=== PATIENT | male | born 1930 | race Caucasian/White ===

== ENCOUNTER 2016-12-14 12:33 | Inpatient (IN) | payer MEDICARE ==
[2016-12-14] MEDS ORDERED: NS 0.9% 1000 ML* 2,000 ML IV ONE (12:51)
[2016-12-14] MEDS ORDERED: Vancomycin(*) 1,000 MG in NS 0.9% 250 ML* 250 ML IVPB ONE (12:53)
[2016-12-14] MEDS ORDERED: ceFAZolin 1 GM in Dextrose (*) 1 GM/50 ML BAG IVPB ONE (12:53)
[2016-12-14 13:28] LABS: Hematocrit 44 % (42-52); Hemoglobin 14.2 g/dl (14.0-18.0); Mean Corpuscular HGB Conc 33 g/dl (31-36); Mean Corpuscular Hemoglobin 32 pg (27-31); Mean Corpuscular Volume 98 fL (80-94); Mean Platelet Volume 9 um3 (7.4-10.4); Red Blood Count 4.46 10^6/ul (4.0-5.4); Red Cell Distribution Width 13 % (10.5-15); White Blood Count 15.6 10^3/ul (3.5-10.8)
[2016-12-14 13:44] LABS: Albumin 3.9 g/dL (3.2-5.2); BUN/Creatinine Ratio 13.9 (8-20); C Reactive Protein 5.71 mg/L (< 5.00); Calcium 9.4 mg/dL (8.6-10.3); EGFR African American 90.1 (>60); Globulin 3.6 g/dL (2-4); Potassium 3.9 mmol/L (3.5-5.0); Total Bilirubin 0.9 mg/dL (0.2-1.0); Total Protein 7.5 g/dL (6.4-8.9)
[2016-12-14 13:45] LABS: Troponin I 0.01 ng/mL (<0.04)
[2016-12-14 13:52] LABS: Urine Bilirubin Negative (Negative); Urine Glucose Negative (Negative); Urine Nitrite Negative (Negative)
--- NOTE | 2016-12-14 14:08 | RAD ---
INDICATION: Fever. COMPARISON: Comparison is made with a prior chest x-ray study from March 15, 2016. TECHNIQUE: A portable view of the chest was obtained. FINDINGS: There is a dual-chamber transvenous cardiac pacemaker present. The heart appears within normal limits in size. The lungs are underinflated. There is a small infiltrate at the left lung base. IMPRESSION: EXPIRATORY EXAM, SMALL LEFT BASILAR INFILTRATE.
[2016-12-14 14:18] LABS: TSH (Thyroid Stimulating Horm) 1.19 mcIU/mL (0.34-5.60)
[2016-12-14] MEDS ORDERED: GuaiFENesin DM* 5 ML UDC PO PRN (15:13)
[2016-12-14] MEDS ORDERED: MELATONIN 5 MG PO PRN (15:13)
[2016-12-14] MEDS ORDERED: NS 0.9% 1000 ML* 1,000 ML IV SCH (15:15)
[2016-12-14] MEDS ORDERED: Albuterol 2.5 MG/3 ML NEB.SOL* (0.083%) INH PRN (15:26)
[2016-12-14] MEDS ORDERED: Acetaminophen TAB* 325 MG PO PRN (15:26)
--- NOTE | 2016-12-14 15:26 | ED ---
Julio Nolan Billy, scribed for Porter Serrano MD on 12/14/16 at 1253 . Complex/Multi-Sys Presentation - HPI Summary HPI Summary: Patient is an 86 year-old male BIBA to [facility] from the [place] with complaints of fever and weakness today. Nothing makes his symptoms better or worse. He denies any chest pain, shortness of breath, or abdominal pain. He has a dressing on his LLE for cellulitis and he is being treated with doxycycline. - History Of Current Complaint Chief Complaint: EDFever Time Seen by Provider: 12/14/16 12:41 Hx Obtained From: Patient, Family/Gum Worker Onset/Duration: Gradual Onset, Lasting Hours, Still Present Timing: Constant Severity Currently: Moderate Severity Initially: Moderate Aggravating Factor(s): none Alleviating Factor(s): none Associated Signs And Symptoms: Positive: Weakness, Fever, Other - LLE cellulitis - Allergies/Home Medications Allergies/Adverse Reactions: Allergies Allergy/AdvReac Type Severity Reaction Status Date / Time No Known Allergies Allergy Verified 03/15/16 19:57 Home Medications: Home Medications Atorvastatin* [Lipitor 20 MG*] 20 mg PO BEDTIME 12/14/16 [History Confirmed ] Cyanocobalamin TAB* [Vitamin B12 TAB*] 1,000 mcg PO DAILY 12/14/16 [History Confirmed 12/14/16] Doxycycline Hyclate [Doxycycline Hyclate Dr] 100 mg PO BID 12/14/16 [History Confirmed 12/14/16] Furosemide TAB* [Lasix TAB*] 20 mg PO EVERY OTHER DAY 12/14/16 [History Confirmed 12/14/16] GuaiFENesin DM* [Robitussin DM*] 5 ml PO Q4H PRN 12/14/16 [History Confirmed ] Hydrochlorothiazide TAB* [Hydrodiuril TAB*] 12.5 mg PO QAM 12/14/16 [History Confirmed 12/14/16] LoraTADine TAB(NF) [Claritin 10 MG TAB(NF)] 10 mg PO DAILY 12/14/16 [History Confirmed 12/14/16] Melatonin 5 mg PO BEDTIME PRN 12/14/16 [History Confirmed 12/14/16] Menthol (Mouth-Throat) [[place] Cough Drops] 7 mg PO Q4HR PRN 12/14/16 [History Confirmed 12/14/16] PMH/Surg Hx/FS Hx/Imm Hx Endocrine/Hematology History: Denies: Hx Diabetes Cardiovascular History: Reports: Hx Auto Implanted Cardiovert Defib, Hx Hypertension, Hx Pacemaker/ICD - FOR BRADYARRHYTHMIA Denies: Hx Congestive Heart Failure History: Denies: Hx Renal Disease Sensory History: Reports: Hx Contacts or Glasses, Hx Hearing Problem Opthamlomology History: Reports: Hx Contacts or Glasses - Cancer History Cancer Type, Location 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 - Surgical History Surgery Procedure, Year, and Place: Hernia repair x 2 Infectious Disease History: No Infectious Disease History: Denies: History Other Infectious Disease, Traveled Outside the [place] in Last 30 Days - Family History Known Family History: Positive: Unknown - Patient is a poor historian concerning his family history. - Social History Alcohol Use: None Substance Use Type: Reports: None Smoking Status (MU): Never Smoked Tobacco Review of Systems Positive: Fever Negative: Chest Pain Negative: Shortness Of Breath Negative: Abdominal Pain Positive: Other - erythema LLE Positive: Weakness All Other Systems Reviewed And Are Negative: Yes Physical Exam Triage Information Reviewed: Yes Vital Signs On Initial Exam: Initial Vitals Temp Pulse Resp BP Pulse Ox 101.9 F 72 33 113/61 100 12/14/16 12:43 12/14/16 12:43 12/14/16 12:43 12/14/16 12:43 12/14/16 12:43 Vital Signs Reviewed: Yes Appearance: Positive: Well-Appearing, No Pain Distress Skin: Positive: Warm, Skin Color Reflects Adequate Perfusion, Dry, Erythema @ - There is an area of erythema on the left lower extremity. There is clean dressing applied, with drainage at the edges. Head/Face: Positive: Normal Head/Face Inspection Eyes: Positive: EOMI, MEGAN ENT: Positive: Normal ENT inspection, Other - Hard of hearing Neck: Positive: Supple, Nontender Respiratory/Lung Sounds: Positive: Clear to Auscultation, Breath Sounds Present Cardiovascular: Positive: RRR Abdomen Description: Positive: Nontender, Soft Bowel Sounds: Positive: Present Musculoskeletal: Positive: Normal, Strength/ROM Intact Neurological: Positive: Sensory/Motor Intact Psychiatric: Positive: Affect/Mood Appropriate Diagnostics - Vital Signs Vital Signs Temp Pulse Resp BP Pulse Ox 12/14/16 12:43 101.9 F 72 33 113/61 100 - Laboratory Lab Results: Lab Results 12/14/16 12/14/16 12/14/16 Range/Units 13:15 13:15 13:15 WBC 15.6 H (3.5-10.8) 10^3/ul RBC 4.46 (4.0-5.4) 10^6/ul Hgb 14.2 (14.0-18.0) g/dl Hct 44 (42-52) % MCV 98 H (80-94) fL MCH 32 H (27-31) pg MCHC 33 (31-36) g/dl RDW 13 (10.5-15) % Plt Count 163 (150-450) 10^3/ul MPV 9 (7.4-10.4) um3 Neut % (Auto) 88.9 H (38-83) % Lymph % (Auto) 4.8 L (25-47) % [place] % (Auto) 5.7 (1-9) % Eos % (Auto) 0.2 (0-6) % Baso % (Auto) 0.4 (0-2) % Absolute Neuts (auto) 13.9 H (1.5-7.7) 10^3/ul Absolute Lymphs (auto) 0.7 L (1.0-4.8) 10^3/ul Absolute Monos (auto) 0.9 H (0-0.8) 10^3/ul Absolute Eos (auto) 0 (0-0.6) 10^3/ul Absolute Basos (auto) 0.1 (0-0.2) 10^3/ul Absolute Nucleated RBC 0 10^3/ul Nucleated RBC % 0 INR (Anticoag Therapy) 2.31 H (0.89-1.11) APTT 40.6 H (26.0-36.3) seconds Sodium 135 (133-145) mmol/L Potassium 3.9 (3.5-5.0) mmol/L Chloride 100 L (101-111) mmol/L Carbon Dioxide 29 (22-32) mmol/L Anion Gap 6 (2-11) mmol/L BUN 14 (6-24) mg/dL Creatinine 1.01 (0.67-1.17) mg/dL Est GFR ( Amer) 90.1 (>60) Est GFR (Non-Af Amer) 70.0 (>60) BUN/Creatinine Ratio 13.9 (8-20) Glucose 162 H (70-100) mg/dL Lactic Acid (0.5-2.0) mmol/L Calcium 9.4 (8.6-10.3) mg/dL Total Bilirubin 0.90 (0.2-1.0) mg/dL AST 22 (13-39) U/L ALT 18 (7-52) U/L Alkaline Phosphatase 90 (34-104) U/L Troponin I 0.01 (<0.04) ng/mL C-Reactive Protein 5.71 H (< 5.00) mg/L B-Natriuretic Peptide ( - 100) pg/mL Total Protein 7.5 (6.4-8.9) g/dL Albumin 3.9 (3.2-5.2) g/dL Globulin 3.6 (2-4) g/dL Albumin/Globulin Ratio 1.1 (1-3) Lipase 11 (11.0-82.0) U/L TSH 1.19 (0.34-5.60) mcIU/mL Urine Color Urine Appearance Urine pH (5-9) Ur Specific [place] (1.010-1.030) Urine Protein (Negative) Urine Ketones (Negative) Urine Blood (Negative) Urine Nitrate (Negative) Urine Bilirubin (Negative) Urine Urobilinogen (Negative) Ur Leukocyte Esterase (Negative) Urine Glucose (Negative) 12/14/16 12/14/16 12/14/16 Range/Units 13:15 13:15 13:35 WBC (3.5-10.8) 10^3/ul RBC (4.0-5.4) 10^6/ul Hgb (14.0-18.0) g/dl Hct (42-52) % MCV (80-94) fL MCH (27-31) pg MCHC (31-36) g/dl RDW (10.5-15) % Plt Count (150-450) 10^3/ul MPV (7.4-10.4) um3 Neut % (Auto) (38-83) % Lymph % (Auto) (25-47) % [place] % (Auto) (1-9) % Eos % (Auto) (0-6) % Baso % (Auto) (0-2) % Absolute Neuts (auto) (1.5-7.7) 10^3/ul Absolute Lymphs (auto) (1.0-4.8) 10^3/ul Absolute Monos (auto) (0-0.8) 10^3/ul Absolute Eos (auto) (0-0.6) 10^3/ul Absolute Basos (auto) (0-0.2) 10^3/ul Absolute Nucleated RBC 10^3/ul Nucleated RBC % INR (Anticoag Therapy) (0.89-1.11) APTT (26.0-36.3) seconds Sodium (133-145) mmol/L Potassium (3.5-5.0) mmol/L Chloride (101-111) mmol/L Carbon Dioxide (22-32) mmol/L Anion Gap (2-11) mmol/L BUN (6-24) mg/dL Creatinine (0.67-1.17) mg/dL Est GFR ( Amer) (>60) Est GFR (Non-Af Amer) (>60) BUN/Creatinine Ratio (8-20) Glucose (70-100) mg/dL Lactic Acid 1.8 (0.5-2.0) mmol/L Calcium (8.6-10.3) mg/dL Total Bilirubin (0.2-1.0) mg/dL AST (13-39) U/L ALT (7-52) U/L Alkaline Phosphatase (34-104) U/L Troponin I (<0.04) ng/mL C-Reactive Protein (< 5.00) mg/L B-Natriuretic Peptide 102 H ( - 100) pg/mL Total Protein (6.4-8.9) g/dL Albumin (3.2-5.2) g/dL Globulin (2-4) g/dL Albumin/Globulin Ratio (1-3) Lipase (11.0-82.0) U/L TSH (0.34-5.60) mcIU/mL Urine Color Yellow Urine Appearance Clear Urine pH 6.0 (5-9) Ur Specific [place] 1.014 (1.010-1.030) Urine Protein Negative (Negative) Urine Ketones Negative (Negative) Urine Blood Negative (Negative) Urine Nitrate Negative (Negative) Urine Bilirubin Negative (Negative) Urine Urobilinogen Negative (Negative) Ur Leukocyte Esterase Negative (Negative) Urine Glucose Negative (Negative) Result Diagrams: 12/14/16 13:15 12/14/16 13:15 Lab Statement: Any lab studies that have been ordered have been reviewed, and results considered in the medical decision making process. - Radiology CXR Radiology Interpretation Completed By: Radiologist - EXPIRATORY EXAM, SMALL LEFT BASILAR INFILTRATE. - EKG 1358 EKG Interpretation: paced rhythm 109 bpm Complex Multi-Symp Course/Dx Assessment/Plan: ADMIT HOSPITALIST STABLE - Diagnoses Provider Diagnoses: Cellulitis, Pneumonia - Physician Notifications Discussed Care Of Patient With: Dr. Sage (hospitalist) @ 1316: accepts admission. Discharge - Discharge Plan Condition: Stable Disposition: ADMITTED TO [facility] The documentation as recorded by the Julio middleton Billy accurately reflects the service I personally performed and the decisions made by me, Porter Serrano MD.
[2016-12-14] MEDS: NS 0.9% 1000 ML* 1,000 ML IV SCH (16:26)
[2016-12-14] MEDS: cefTRIAXone VIAL(*) 1,000 MG in NS 0.9% 50 ML* 50 ML IVPB SCH (16:26)
[2016-12-14] MEDS: Azithromycin IV(*) 500 MG in NS 0.9% 250 ML* 250 ML IVPB SCH (17:05)
[2016-12-14] MEDS: Atorvastatin* 20 MG TAB PO SCH (20:25)
[2016-12-14] MEDS: Docusate CAP* 100 MG PO SCH (20:25)
[2016-12-14] MEDS ORDERED: Heparin VIAL(*) 5000 UNITS/ML VIAL (FIVE THOUSAND) SUBCUT SCH (22:00)
--- NOTE | 2016-12-14 22:40 | HP ---
CC: Dr. Canada; Dr. Bejarano HISTORY AND PHYSICAL: DATE OF ADMISSION: 12/14/16 PRIMARY CARE PROVIDER: Dr. Canada. CHIEF COMPLAINT: Fever and cough. HISTORY OF PRESENT ILLNESS: Mr. Ellsworth is an 86-year-old male who just recently moved to [facility] [place]. He had been there for 6 weeks. Approximately a week ago, he was diag nosed with possibility of cellulitis in the left leg and placed on doxycycline by Dr. Canada. He joshi d been taking doxycycline, but today, he was noted to be weak and listless with a fever of 101. He presented to the ED for evaluation. Chest x-ray shows left lower lobe pneumonia. The patient himself is very altered with very minimal verbal interaction. The patient's healthcare proxy, his daughter, Kristy Cruz, is not available locally since she just went to [place] for 2 day s. The patient's good friend and good friend of Dom is in the room and the information received from her, the patient had been declining mentally for the past several months and that is why he wa s placed in assisted living facility. His gait is shuffling, but steady and he was instructed by [facility] primary care physician to use a walker, but he has not. PAST MEDICAL HISTORY: 1. History of third-degree AV block, status post pacemaker placement. 2. History of skin cancer with lesion removed. 3. 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 4. History of paroxysmal atrial fibrillation. OUTPATIENT MEDICATIONS: Include: 1. Doxycycline 100 mg b.i.d. 2. Lipitor 20 mg daily. 3. Aspirin 81 mg daily. 4. Vitamin B12 1000 mcg daily. 5. Furosemide 20 mg every other day. 6. Guaifenesin 5 mL on a p.r.n. basis. 7. Hydrochlorothiazide 12.5 mg daily. 8. Claritin 10 mg daily. 9. Melatonin 5 mg at bedtime. 10. Menthol cough drops on a p.r.n. basis. 11. Xarelto 20 mg daily. ALLERGIES: No known drug allergies. FAMILY HISTORY: Unobtainable from this patient. SOCIAL HISTORY: The patient has no history of smoking or alcohol use. He just moved to assisted li ving facility and his healthcare proxy is his daughter, Kristy Cruz, phone number [phone]. REVIEW OF SYSTEMS: Unobtainable from this patient who is not able to communicate. PHYSICAL EXAMINATION GENERAL: The patient is an 86-year-old male who is lying in bed with his arms close to his chest. The patient is minimally verbal and he is able to respond yes to his name. He apparently is also joshi rd of hearing from history. He is able to localize painful stimuli, but not really able to follow c ommands. VITAL SIGNS: Blood pressure of 113/82, temperature of 101.8, pulse rate of 88, respiratory rate 24, oxygen saturation 100% on 2 L of oxygen nasal cannula. HEENT: Head: Atraumatic, normocephalic. Eyes: Pupils equal, reactive to light and accommodation. Oropharynx clear. Mucosa very dry. NECK: Supple. No JVD, no bruit bilaterally. RESPIRATORY: Rhonchi at left lower lung, otherwise clear. CARDIOVASCULAR: Regular rate and rhythm. No murmur. ABDOMEN: Protuberant, slightly distended. Soft, nontender. Bowel sounds are present in all 4 quad rants. EXTREMITIES: There is trace bilateral ankle edema, left more than right. The patient appears to joshi ve venous stasis dermatitis on bilateral medial aspect of his legs right next to the ankles. The le ft side appears more advanced with areas of healed blisters and maybe slightly area of erythema with questionable cellulitis. NEURO: The patient does have cogwheel rigidity. He appears to have bradykinesis and a masked-like face. He has no focal neuro deficits. His speech is clear, very limited. PSYCHIATRIC: As mentioned above, very limited verbalization. Unable to follow commands. DIAGNOSTIC STUDIES/LAB DATA: Sodium of 135, potassium of 3.9, chloride 100, carbon dioxide 29, BUN 14, creatinine 1.01. Liver functions are unremarkable. C-reactive protein of 5. Brain natriureti c peptide of 102. TSH of 1.19. White blood cell count of 15.6, hemoglobin of 14.2, hematocrit of 44, platelets of 163. INR of 2.3. Urinalysis unremarkable. Flu test is pending at the time of dictation. The patient's chest x-ray showed left lower lobe infiltrate. The patient's EKG showed paced rhythm. ASSESSMENT AND PLAN: An 86-year-old male with a history of most likely dementia who just recently w as placed in an assisted living facility, who also has history of atrial fibrillation and cardioembo lic transient ischemic attack/cerebrovascular accident in the past, currently on Xarelto, who presen ts with sepsis. The patient was recently diagnosed with left leg cellulitis and placed on doxycycli ne, which he had been taking for almost a week. 1. The patient is currently septic, most likely due to left lower lobe pneumonia. Flu test is pendi ng. He became septic despite being treated with doxycycline. The patient is going to be placed on ceftriaxone and azithromycin. Urine legionella and pneumococcal antigens are going to be obtained a s well as blood cultures. Doxycycline is going to be held. I believe that the ceftriaxone and azith romycin are enough to cover the patient's cellulitis. I am unsure if actually the lesion is celluli tic and it is possible that he had an infection on top of chronic venous stasis dermatitis. 2. 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 I spoke with the patient's healthcare p jethro, recommended outpatient neuro evaluation. 3. In regards to the patient's history of atrial fibrillation, Xarelto is going to be continued. 4. In regards to hypertension, his antihypertensives are going to be held for the time being. 5. For DVT prophylaxis, the patient is going to be continued on Xarelto as previously mentioned. 6. The patient's code status was discussed with the patient's healthcare proxy and full code was re quested. TIME SPENT: Approximately 75 minutes was spent on admission of this patient, more than half that ti me was spent [id number] with the patient during the interview and physical exam. [id number]/[facility] #: [id number]
[2016-12-15] MEDS: NS 0.9% 1000 ML* 1,000 ML IV SCH (03:08)
[2016-12-15 06:47] LABS: Hematocrit 36 % (42-52); Hemoglobin 11.7 g/dl (14.0-18.0); Mean Corpuscular HGB Conc 33 g/dl (31-36); Mean Corpuscular Hemoglobin 32 pg (27-31); Mean Corpuscular Volume 98 fL (80-94); Mean Platelet Volume 9 um3 (7.4-10.4); Red Blood Count 3.66 10^6/ul (4.0-5.4); Red Cell Distribution Width 13 % (10.5-15); White Blood Count 16.1 10^3/ul (3.5-10.8)
[2016-12-15 07:01] LABS: BUN/Creatinine Ratio 22.5 (8-20); Calcium 8.3 mg/dL (8.6-10.3); EGFR African American 117.9 (>60); EGFR Non-African American 91.7 (>60); Potassium 3.7 mmol/L (3.5-5.0)
[2016-12-15] MEDS: Cyanocobalamin TAB* 500 MCG PO SCH (08:59)
[2016-12-15] MEDS: Aspirin Low Dose CHEW TAB* 81 MG PO SCH (08:59)
[2016-12-15] MEDS: Docusate CAP* 100 MG PO SCH ×2 (09:00→20:03)
--- NOTE | 2016-12-15 12:37 | PN ---
Subjective Date of Service: 12/15/16 Interval History: Pt feels much better. Doesn't remember what happened yesterday. no complaints. Very forgetful Objective Active Medications: Acetaminophen (Tylenol Tab*) 650 mg PO Q4H PRN PRN Reason: FEVER/PAIN Albuterol (Ventolin 2.5 Mg/3 Ml Neb.Kandis*) 2.5 mg INH [id number] AWAKE PRN PRN Reason: sob/wheezing Aspirin (Aspirin Low Dose Tab*) 81 mg PO DAILY [facility] Last Admin: 12/15/16 08:59 Dose: 81 mg Atorvastatin Calcium (Lipitor*) 20 mg PO BEDTIME [facility] Last Admin: 12/14/16 20:25 Dose: 20 mg Cyanocobalamin (Vitamin B12 Tab*) 1,000 mcg PO DAILY [facility] Last Admin: 12/15/16 08:59 Dose: 1,000 mcg Docusate Sodium (Colace Cap*) 100 mg PO BID [facility] Last Admin: 12/15/16 09:00 Dose: 100 mg Guaifenesin/Dextromethorphan (Robitussin Dm*) 5 ml PO Q4H PRN PRN Reason: COUGH Ceftriaxone Sodium 1,000 mg/ (Sodium Chloride) 50 mls @ 200 mls/hr IVPB Q24H [facility] Last Admin: 12/14/16 16:26 Dose: 200 mls/hr Azithromycin 500 mg/ Sodium (Chloride) 250 mls @ 250 mls/hr IVPB Q24H [facility] Last Admin: 12/14/16 17:05 Dose: 250 mls/hr Melatonin (Melatonin (Nf)) 1 tab PO BEDTIME PRN PRN Reason: SLEEP Rivaroxaban (Xarelto (*)) 20 mg PO DAILY@1700 [facility] Vital Signs 12/14/16 12/14/16 12/14/16 14:30 15:00 15:30 Temperature Pulse Rate 59 74 59 Respiratory 30 24 30 Rate Blood Pressure 108/53 115/58 94/57 (mmHg) O2 Sat by Pulse 95 97 93 Oximetry 12/14/16 12/14/16 12/14/16 15:35 16:44 16:47 Temperature 101.3 F 98.0 F Pulse Rate 74 Respiratory 20 20 Rate Blood Pressure 90/50 (mmHg) O2 Sat by Pulse 94 Oximetry 12/14/16 12/14/16 12/14/16 18:24 19:15 20:00 Temperature 99.6 F Pulse Rate 92 Respiratory 20 17 Rate Blood Pressure 117/66 89/49 (mmHg) O2 Sat by Pulse 98 Oximetry 12/14/16 12/15/16 12/15/16 23:26 02:46 08:04 Temperature 97.8 F 97.6 F 97.3 F Pulse Rate 86 81 82 Respiratory 16 16 16 Rate Blood Pressure 96/53 98/53 84/51 (mmHg) O2 Sat by Pulse 99 95 99 Oximetry 12/15/16 11:49 Temperature 97.8 F Pulse Rate 63 Respiratory 16 Rate Blood Pressure 111/56 (mmHg) O2 Sat by Pulse 100 Oximetry Oxygen Devices in Use Now: None Appearance: 86 yo M in nAD, aAOx2, very poor short term memory Eyes: No Scleral Icterus, PERRLA Ears/Nose/Mouth/Throat: NL Teeth, Lips, Gums, Mucous Membranes Moist Neck: NL Appearance and Movements; NL JVP, Trachea Midline Respiratory: Symmetrical Chest Expansion and Respiratory Effort, - - LLL rhonchi Cardiovascular: NL Sounds; No Murmurs; No JVD, RRR Abdominal: NL Sounds; No Tenderness; No Distention, No Hepatosplenomegaly Lymphatic: No Cervical Adenopathy Extremities: No Clubbing, Cyanosis, - - b/l ankle edema L>R, left foot edema Skin: No Nodules or Sclerosis, - - venous stasis dermatitis -medial aspect both ankles L>R-dry scaly erythema-no cellulitis Neurological: NL Muscle Strength and Tone Result Diagrams: 12/15/16 06:33 12/15/16 06:34 Additional Lab and Data: Lab Results 12/14/16 12/14/16 12/14/16 Range/Units 13:15 13:15 13:15 WBC 15.6 H (3.5-10.8) 10^3/ul RBC 4.46 (4.0-5.4) 10^6/ul Hgb 14.2 (14.0-18.0) g/dl Hct 44 (42-52) % MCV 98 H (80-94) fL MCH 32 H (27-31) pg MCHC 33 (31-36) g/dl RDW 13 (10.5-15) % Plt Count 163 (150-450) 10^3/ul MPV 9 (7.4-10.4) um3 Neut % (Auto) 88.9 H (38-83) % Lymph % (Auto) 4.8 L (25-47) % [place] % (Auto) 5.7 (1-9) % Eos % (Auto) 0.2 (0-6) % Baso % (Auto) 0.4 (0-2) % Absolute Neuts (auto) 13.9 H (1.5-7.7) 10^3/ul Absolute Lymphs (auto) 0.7 L (1.0-4.8) 10^3/ul Absolute Monos (auto) 0.9 H (0-0.8) 10^3/ul Absolute Eos (auto) 0 (0-0.6) 10^3/ul Absolute Basos (auto) 0.1 (0-0.2) 10^3/ul Absolute Nucleated RBC 0 10^3/ul Nucleated RBC % 0 INR (Anticoag Therapy) 2.31 H (0.89-1.11) APTT 40.6 H (26.0-36.3) seconds Sodium 135 (133-145) mmol/L Potassium 3.9 (3.5-5.0) mmol/L Chloride 100 L (101-111) mmol/L Carbon Dioxide 29 (22-32) mmol/L Anion Gap 6 (2-11) mmol/L BUN 14 (6-24) mg/dL Creatinine 1.01 (0.67-1.17) mg/dL Est GFR ( Amer) 90.1 (>60) Est GFR (Non-Af Amer) 70.0 (>60) BUN/Creatinine Ratio 13.9 (8-20) Glucose 162 H (70-100) mg/dL Lactic Acid (0.5-2.0) mmol/L Calcium 9.4 (8.6-10.3) mg/dL Total Bilirubin 0.90 (0.2-1.0) mg/dL AST 22 (13-39) U/L ALT 18 (7-52) U/L Alkaline Phosphatase 90 (34-104) U/L Troponin I 0.01 (<0.04) ng/mL C-Reactive Protein 5.71 H (< 5.00) mg/L B-Natriuretic Peptide ( - 100) pg/mL Total Protein 7.5 (6.4-8.9) g/dL Albumin 3.9 (3.2-5.2) g/dL Globulin 3.6 (2-4) g/dL Albumin/Globulin Ratio 1.1 (1-3) Lipase 11 (11.0-82.0) U/L TSH 1.19 (0.34-5.60) mcIU/mL Urine Color Urine Appearance Urine pH (5-9) Ur Specific [place] (1.010-1.030) Urine Protein (Negative) Urine Ketones (Negative) Urine Blood (Negative) Urine Nitrate (Negative) Urine Bilirubin (Negative) Urine Urobilinogen (Negative) Ur Leukocyte Esterase (Negative) Urine Glucose (Negative) 12/14/16 12/14/16 12/14/16 Range/Units 13:15 13:15 13:35 WBC (3.5-10.8) 10^3/ul RBC (4.0-5.4) 10^6/ul Hgb (14.0-18.0) g/dl Hct (42-52) % MCV (80-94) fL MCH (27-31) pg MCHC (31-36) g/dl RDW (10.5-15) % Plt Count (150-450) 10^3/ul MPV (7.4-10.4) um3 Neut % (Auto) (38-83) % Lymph % (Auto) (25-47) % [place] % (Auto) (1-9) % Eos % (Auto) (0-6) % Baso % (Auto) (0-2) % Absolute Neuts (auto) (1.5-7.7) 10^3/ul Absolute Lymphs (auto) (1.0-4.8) 10^3/ul Absolute Monos (auto) (0-0.8) 10^3/ul Absolute Eos (auto) (0-0.6) 10^3/ul Absolute Basos (auto) (0-0.2) 10^3/ul Absolute Nucleated RBC 10^3/ul Nucleated RBC % INR (Anticoag Therapy) (0.89-1.11) APTT (26.0-36.3) seconds Sodium (133-145) mmol/L Potassium (3.5-5.0) mmol/L Chloride (101-111) mmol/L Carbon Dioxide (22-32) mmol/L Anion Gap (2-11) mmol/L BUN (6-24) mg/dL Creatinine (0.67-1.17) mg/dL Est GFR ( Amer) (>60) Est GFR (Non-Af Amer) (>60) BUN/Creatinine Ratio (8-20) Glucose (70-100) mg/dL Lactic Acid 1.8 (0.5-2.0) mmol/L Calcium (8.6-10.3) mg/dL Total Bilirubin (0.2-1.0) mg/dL AST (13-39) U/L ALT (7-52) U/L Alkaline Phosphatase (34-104) U/L Troponin I (<0.04) ng/mL C-Reactive Protein (< 5.00) mg/L B-Natriuretic Peptide 102 H ( - 100) pg/mL Total Protein (6.4-8.9) g/dL Albumin (3.2-5.2) g/dL Globulin (2-4) g/dL Albumin/Globulin Ratio (1-3) Lipase (11.0-82.0) U/L TSH (0.34-5.60) mcIU/mL Urine Color Yellow Urine Appearance Clear Urine pH 6.0 (5-9) Ur Specific [place] 1.014 (1.010-1.030) Urine Protein Negative (Negative) Urine Ketones Negative (Negative) Urine Blood Negative (Negative) Urine Nitrate Negative (Negative) Urine Bilirubin Negative (Negative) Urine Urobilinogen Negative (Negative) Ur Leukocyte Esterase Negative (Negative) Urine Glucose Negative (Negative) Microbiology and Other Data: Microbiology 12/14/16 18:00 Legionella Urinary Antigen - Final Urine Negative Legionella 12/14/16 15:30 Influenza Types A,B Antigen (GURJIT) - Final Nasopharyngeal Specimen received for Influenza A/B Molecular testing Assess/Plan/Problems-Billing Assessment: 86 yo M with h/o PAF, 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 (2) Toxic metabolic encephalopathy Comment: slowly resolving due to sepsis PT/OT eval pending. Suspect that he will not be ready priror to Saturday to return to assist living (3) PAF (paroxysmal atrial fibrillation) Comment: Paced at admission cotn Xarelto (4) DVT prophylaxis Comment: Xarelto Status and Disposition: Inpatient, due to toxic metabolic encephalopathy will need at least one more day of hospital stay
--- NOTE | 2016-12-15 14:33 | RAD ---
Indication: Left leg edema. Duplex Doppler sonography of the deep venous system of the left lower extremity deep venous system was performed. Bilaterally the common femoral veins appear patent and compressible. Left proximal greater saphenous vein, proximal deep femoral vein, femoral vein, popliteal vein, posterior tibial veins and peroneal veins appear patent and compressible. IMPRESSION: NO EVIDENCE OF DEEP VENOUS THROMBOSIS IS IDENTIFIED.
[2016-12-15] MEDS: cefTRIAXone VIAL(*) 1,000 MG in NS 0.9% 50 ML* 50 ML IVPB SCH (15:36)
[2016-12-15] MEDS: Azithromycin IV(*) 500 MG in NS 0.9% 250 ML* 250 ML IVPB SCH (16:42)
[2016-12-15] MEDS: Rivaroxaban TAB(*) 20 MG TAB PO SCH (16:43)
[2016-12-15] MEDS: Atorvastatin* 20 MG TAB PO SCH (20:03)
[2016-12-16] MEDS: Aspirin Low Dose CHEW TAB* 81 MG PO SCH (07:35)
[2016-12-16] MEDS: Docusate CAP* 100 MG PO SCH ×2 (07:35→20:23)
[2016-12-16] MEDS: Cyanocobalamin TAB* 500 MCG PO SCH (07:35)
--- NOTE | 2016-12-16 13:27 | PN ---
Subjective Date of Service: 12/16/16 Interval History: Pt feels well. No complaints. Very forgetful Objective Active Medications: Acetaminophen (Tylenol Tab*) 650 mg PO Q4H PRN PRN Reason: FEVER/PAIN Albuterol (Ventolin 2.5 Mg/3 Ml Neb.Kandis*) 2.5 mg INH [id number] AWAKE PRN PRN Reason: sob/wheezing Aspirin (Aspirin Low Dose Tab*) 81 mg PO DAILY [facility] Last Admin: 12/16/16 07:35 Dose: 81 mg Atorvastatin Calcium (Lipitor*) 20 mg PO BEDTIME [facility] Last Admin: 12/15/16 20:03 Dose: 20 mg Cyanocobalamin (Vitamin B12 Tab*) 1,000 mcg PO DAILY [facility] Last Admin: 12/16/16 07:35 Dose: 1,000 mcg Docusate Sodium (Colace Cap*) 100 mg PO BID [facility] Last Admin: 12/16/16 07:35 Dose: 100 mg Guaifenesin/Dextromethorphan (Robitussin Dm*) 5 ml PO Q4H PRN PRN Reason: COUGH Ceftriaxone Sodium 1,000 mg/ (Sodium Chloride) 50 mls @ 200 mls/hr IVPB Q24H [facility] Last Admin: 12/15/16 15:36 Dose: 200 mls/hr Azithromycin 500 mg/ Sodium (Chloride) 250 mls @ 250 mls/hr IVPB Q24H [facility] Last Admin: 12/15/16 16:42 Dose: 250 mls/hr Melatonin (Melatonin (Nf)) 1 tab PO BEDTIME PRN PRN Reason: SLEEP Rivaroxaban (Xarelto (*)) 20 mg PO DAILY@1700 [facility] Last Admin: 12/15/16 16:43 Dose: 20 mg Oxygen Devices in Use Now: None Appearance: 86 yo M AAOx2, very poor short term memory Eyes: No Scleral Icterus, PERRLA Ears/Nose/Mouth/Throat: NL Teeth, Lips, Gums, Mucous Membranes Moist Neck: NL Appearance and Movements; NL JVP, Trachea Midline Respiratory: Symmetrical Chest Expansion and Respiratory Effort, - - crackles at LLL Cardiovascular: - - irregular Abdominal: NL Sounds; No Tenderness; No Distention, No Hepatosplenomegaly Lymphatic: No Cervical Adenopathy Extremities: No Clubbing, Cyanosis, - - b/l ankle edema L>R Skin: - - venous stasis dermatitis on medial aspect both ankles L>R Neurological: NL Muscle Strength and Tone Result Diagrams: 12/15/16 06:33 12/15/16 06:34 Additional Lab and Data: Lab Results 12/14/16 12/14/16 12/14/16 Range/Units 13:15 13:15 13:15 WBC 15.6 H (3.5-10.8) 10^3/ul RBC 4.46 (4.0-5.4) 10^6/ul Hgb 14.2 (14.0-18.0) g/dl Hct 44 (42-52) % MCV 98 H (80-94) fL MCH 32 H (27-31) pg MCHC 33 (31-36) g/dl RDW 13 (10.5-15) % Plt Count 163 (150-450) 10^3/ul MPV 9 (7.4-10.4) um3 Neut % (Auto) 88.9 H (38-83) % Lymph % (Auto) 4.8 L (25-47) % Walton % (Auto) 5.7 (1-9) % Eos % (Auto) 0.2 (0-6) % Baso % (Auto) 0.4 (0-2) % Absolute Neuts (auto) 13.9 H (1.5-7.7) 10^3/ul Absolute Lymphs (auto) 0.7 L (1.0-4.8) 10^3/ul Absolute Monos (auto) 0.9 H (0-0.8) 10^3/ul Absolute Eos (auto) 0 (0-0.6) 10^3/ul Absolute Basos (auto) 0.1 (0-0.2) 10^3/ul Absolute Nucleated RBC 0 10^3/ul Nucleated RBC % 0 INR (Anticoag Therapy) 2.31 H (0.89-1.11) APTT 40.6 H (26.0-36.3) seconds Sodium 135 (133-145) mmol/L Potassium 3.9 (3.5-5.0) mmol/L Chloride 100 L (101-111) mmol/L Carbon Dioxide 29 (22-32) mmol/L Anion Gap 6 (2-11) mmol/L BUN 14 (6-24) mg/dL Creatinine 1.01 (0.67-1.17) mg/dL Est GFR ( Amer) 90.1 (>60) Est GFR (Non-Af Amer) 70.0 (>60) BUN/Creatinine Ratio 13.9 (8-20) Glucose 162 H (70-100) mg/dL Lactic Acid (0.5-2.0) mmol/L Calcium 9.4 (8.6-10.3) mg/dL Total Bilirubin 0.90 (0.2-1.0) mg/dL AST 22 (13-39) U/L ALT 18 (7-52) U/L Alkaline Phosphatase 90 (34-104) U/L Troponin I 0.01 (<0.04) ng/mL C-Reactive Protein 5.71 H (< 5.00) mg/L B-Natriuretic Peptide ( - 100) pg/mL Total Protein 7.5 (6.4-8.9) g/dL Albumin 3.9 (3.2-5.2) g/dL Globulin 3.6 (2-4) g/dL Albumin/Globulin Ratio 1.1 (1-3) Lipase 11 (11.0-82.0) U/L TSH 1.19 (0.34-5.60) mcIU/mL Urine Color Urine Appearance Urine pH (5-9) Ur Specific [place] (1.010-1.030) Urine Protein (Negative) Urine Ketones (Negative) Urine Blood (Negative) Urine Nitrate (Negative) Urine Bilirubin (Negative) Urine Urobilinogen (Negative) Ur Leukocyte Esterase (Negative) Urine Glucose (Negative) 12/14/16 12/14/16 12/14/16 Range/Units 13:15 13:15 13:35 WBC (3.5-10.8) 10^3/ul RBC (4.0-5.4) 10^6/ul Hgb (14.0-18.0) g/dl Hct (42-52) % MCV (80-94) fL MCH (27-31) pg MCHC (31-36) g/dl RDW (10.5-15) % Plt Count (150-450) 10^3/ul MPV (7.4-10.4) um3 Neut % (Auto) (38-83) % Lymph % (Auto) (25-47) % Walton % (Auto) (1-9) % Eos % (Auto) (0-6) % Baso % (Auto) (0-2) % Absolute Neuts (auto) (1.5-7.7) 10^3/ul Absolute Lymphs (auto) (1.0-4.8) 10^3/ul Absolute Monos (auto) (0-0.8) 10^3/ul Absolute Eos (auto) (0-0.6) 10^3/ul Absolute Basos (auto) (0-0.2) 10^3/ul Absolute Nucleated RBC 10^3/ul Nucleated RBC % INR (Anticoag Therapy) (0.89-1.11) APTT (26.0-36.3) seconds Sodium (133-145) mmol/L Potassium (3.5-5.0) mmol/L Chloride (101-111) mmol/L Carbon Dioxide (22-32) mmol/L Anion Gap (2-11) mmol/L BUN (6-24) mg/dL Creatinine (0.67-1.17) mg/dL Est GFR ( Amer) (>60) Est GFR (Non-Af Amer) (>60) BUN/Creatinine Ratio (8-20) Glucose (70-100) mg/dL Lactic Acid 1.8 (0.5-2.0) mmol/L Calcium (8.6-10.3) mg/dL Total Bilirubin (0.2-1.0) mg/dL AST (13-39) U/L ALT (7-52) U/L Alkaline Phosphatase (34-104) U/L Troponin I (<0.04) ng/mL C-Reactive Protein (< 5.00) mg/L B-Natriuretic Peptide 102 H ( - 100) pg/mL Total Protein (6.4-8.9) g/dL Albumin (3.2-5.2) g/dL Globulin (2-4) g/dL Albumin/Globulin Ratio (1-3) Lipase (11.0-82.0) U/L TSH (0.34-5.60) mcIU/mL Urine Color Yellow Urine Appearance Clear Urine pH 6.0 (5-9) Ur Specific [place] 1.014 (1.010-1.030) Urine Protein Negative (Negative) Urine Ketones Negative (Negative) Urine Blood Negative (Negative) Urine Nitrate Negative (Negative) Urine Bilirubin Negative (Negative) Urine Urobilinogen Negative (Negative) Ur Leukocyte Esterase Negative (Negative) Urine Glucose Negative (Negative) Microbiology and Other Data: Microbiology 12/14/16 18:00 Legionella Urinary Antigen - Final Urine Negative Legionella 12/14/16 15:30 Influenza Types A,B Antigen (GURJIT) - Final Nasopharyngeal Specimen received for Influenza A/B Molecular testing Assess/Plan/Problems-Billing Assessment: 86 yo M with h/o PAF, 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 (2) Toxic metabolic encephalopathy Comment: slowly resolving, pt still confused,but close to baseline due to sepsis PT signed off, due to good mobility. plan for Saturday to return to assist living (3) PAF (paroxysmal atrial fibrillation) Comment: Paced at admission cotn Xarelto (4) DVT prophylaxis Comment: Xarelto Status and Disposition: Inpatient,
[2016-12-16] MEDS: cefTRIAXone VIAL(*) 1,000 MG in NS 0.9% 50 ML* 50 ML IVPB SCH (15:36)
[2016-12-16] MEDS: Rivaroxaban TAB(*) 20 MG TAB PO SCH (16:12)
[2016-12-16] MEDS: Azithromycin IV(*) 500 MG in NS 0.9% 250 ML* 250 ML IVPB SCH (16:13)
[2016-12-16] MEDS: Atorvastatin* 20 MG TAB PO SCH (20:23)
[2016-12-17 08:15] VITALS: BP 143/77
[2016-12-17] MEDS: Aspirin Low Dose CHEW TAB* 81 MG PO SCH (08:22)
[2016-12-17] MEDS: Docusate CAP* 100 MG PO SCH (08:23)
[2016-12-17] MEDS: Cyanocobalamin TAB* 500 MCG PO SCH (08:23)
--- NOTE | 2016-12-18 09:02 | DS ---
DISCHARGE SUMMARY: DATE OF ADMISSION: 12/14/16 DATE OF DISCHARGE: 12/17/16 PRIMARY CARE PROVIDER: Dr. Canada. DISCHARGE DIAGNOSIS: Sepsis due to left lower lobe pneumonia with toxic metabolic encephalopathy that resolved. SECONDARY DIAGNOSES: 1. History of third-degree atrioventricular block, status post pacemaker placement. 2. History of skin cancer, status post removal. 3. 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 4. History of paroxysmal atrial fibrillation. 5. History of dementia. 6. History of bilateral leg edema. MEDICATIONS AT DISCHARGE: Include: 1. Xarelto 20 mg daily. 2. Melatonin 5 mg at bedtime p.r.n. 3. Claritin 10 mg daily. 4. Hydrochlorothiazide 12.5 mg daily. 5. Robitussin 5 mL every 4 hours p.r.n. 6. Furosemide 20 mg every other day. 7. Vitamin B12 1000 mcg daily. 8. Omnicef 300 mg b.i.d. 9. Azithromycin 250 mg daily. 10. Lipitor 20 mg at bedtime. 11. Aspirin 81 mg daily. DIAGNOSTIC STUDIES/LAB DATA: On 12/15/16, white blood cell count of 16.1, hemoglobin is 11.7, hematocrit of 36, and platelets of 122. On 12/15/16, sodium of 137, potassium 3.7, chloride 106, carbon dioxide 28, BUN 18, creatinine 0.8. Influenza test was negative. Urine legionella test was negative. Blood cultures were negative at the time of discharge. Venous Doppler studies of left lower extremity due to swelling were negative for DVT. Portable chest x-ray, impression: "Expiratory exam with small left basilar infiltrate." HOSPITALIZATION COURSE: Mr. Ellsworth is a very nice 86-year-old male with history of treatment with Xarelto for chronic atrial fibrillation, as well as mild dementia ever since his cardioembolic stroke in mid 2015, who presented with a fever of 101.8 and toxic metabolic encephalopathy due to that. The patient was septic on admission. The workup in the ED revealed left lower lobe pneumonia. The patient was treated with ceftriaxone and azithromycin and the very next day, he appeared much better. He continues to get better on a daily basis but at the time of discharge, he was pleasantly confused, but able to follow commands and conversation. The patient is going to be discharged home to follow up with finishing course of antibiotics. The patient is recommended to follow up with his primary care physician in approximately 4 to 7 days after discharge. PHYSICAL EXAMINATION: At the time of discharge, blood pressure of 143/77, heart rate of 77 and regular, respiratory rate 16, oxygen saturation 100% on room air, temperature 97.6. General: The patient is a very pleasant 86-year- old male who is in no acute distress. The patient is alert and oriented x2, very forgetful. HEENT: Head is atraumatic, normocephalic. Eyes: Pupils are equal and reactive to light and accommodation. Oropharynx: Clear. Mucosa moist. Neck: Supple. No JVD. No bruit bilaterally. Cardiovascular: Irregularly irregular rhythm. No murmur. Respiratory: Clear to auscultation bilaterally. Abdomen: Soft, nontender. Bowel sounds present in all 4 quadrants. Extremities: There is bilateral pedal edema, left more than right. There is no clubbing or cyanosis. On evaluation of the skin, the patient has venous stasis dermatitis of bilateral lower extremities, right more than left, with right area overlying the medial malleolus with blistering lesions that are crusty and covered with a flaky skin. That is all appeared to be related to venous stasis dermatitis. There was no evidence of cellulitis. On neuro evaluation, speech clear. Cranial nerves II through XII grossly intact. Motor strength is 5/5 bilaterally. Please note that the patient has very poor short-term memory. The patient is being discharged to [facility]. Please note that this is a short summary of the patient's hospital stay. Please see refer to further medical records for details. TIME SPENT: Approximately 35 minutes was spent on the patient's discharge. CC: Dr. Canada* [id number]/CPS #: [id number]
== END 2016-12-17 13:15 | DRG 871 ==
LOC: ED 12:33 → MED 14:09 → OBSVTOIN 12-16 12:00
PROVIDERS: ADMIT Internal Medicine; ATTEND Internal Medicine
DX: A41.9 Sepsis, unspecified organism (principal); J18.9 Pneumonia, unspecified organism; I44.2 Atrioventricular block, complete; G92 Toxic encephalopathy; I48.0 Paroxysmal atrial fibrillation; F03.90 Unspecified dementia, unspecified severity, without behavioral disturbance, psychotic disturbance, mood disturbance, and anxiety; I10 Essential (primary) hypertension; I87.2 Venous insufficiency (chronic) (peripheral); Z95.0 Presence of cardiac pacemaker; Z86.73 Personal history of transient ischemic attack (TIA), and cerebral infarction without residual deficits; Z79.01 Long term (current) use of anticoagulants; Z79.82 Long term (current) use of aspirin; Z85.828 Personal history of other malignant neoplasm of skin
CPT/HCPCS: 36415; 71010; 80048; 80053; 81003; 83540; 83605; 83690; 83880; 84443; 84484; 85025; 85610; 85730; 86140; 87040; 87502; 87899; 93005; 94760; A9270-GY; G8978-GP-CI; G8979-GP-CI; G8980-GP-CI; J0456; J0690; J0696; J3370

== ENCOUNTER 2017-02-14 14:30 | Observation (INO) | payer MEDICARE ==
[2017-02-14] MEDS ORDERED: NS 0.9% 1000 ML* 1,000 ML IV ONE (16:20)
[2017-02-14 16:46] LABS: Hematocrit 42 % (42-52); Hemoglobin 13.8 g/dl (14.0-18.0); Mean Corpuscular HGB Conc 33 g/dl (31-36); Mean Corpuscular Hemoglobin 32 pg (27-31); Mean Corpuscular Volume 97 fL (80-94); Mean Platelet Volume 8 um3 (7.4-10.4); Red Blood Count 4.36 10^6/ul (4.0-5.4); Red Cell Distribution Width 13 % (10.5-15)
[2017-02-14 17:05] LABS: Albumin 3.3 g/dL (3.2-5.2); BUN/Creatinine Ratio 27.8 (8-20); C Reactive Protein 28.06 mg/L (< 5.00); Calcium 9.1 mg/dL (8.6-10.3); EGFR African American 94.4 (>60); EGFR Non-African American 73.4 (>60); Globulin 4.2 g/dL (2-4); Potassium 3.6 mmol/L (3.5-5.0); Total Bilirubin 0.6 mg/dL (0.2-1.0); Total Protein 7.5 g/dL (6.4-8.9); Troponin I 0.02 ng/mL (<0.04)
[2017-02-14] MEDS ORDERED: ceFAZolin 1 GM in Dextrose (*) 1 GM/50 ML BAG IVPB ONE (18:15)
[2017-02-14] MEDS ORDERED: NS 0.9% 1000 ML* 1,000 ML IV SCH (21:30)
--- NOTE | 2017-02-14 22:42 | ED ---
Junie Nolan Alok, scribed for Torsten Leon MD on 02/14/17 at 1628 . Altered Mental Status - HPI Summary HPI Summary: 86M presents to the ED sent here from [place] for weakness and AMS in the form of lethargic behavior. According to the pt's nurse, the pt has not been eating recently on top of weakness and lethargy. Pt denies weakness and is able to ambulate slowly with his walker as per usual. PMHx includes bilateral leg edema and bleeding since 3 months ago. His lower extremity bandages were last changed 24 hours ago. Pt takes lasix and a precautionary antibiotic for possible cellulites of the lower extremities. Pt was last admitted 4 days ago for the same symptoms of weakness and lethargy as well as SOB at that time. - History Of Current Complaint Chief Complaint: EDAltMentalStatus Stated Complaint: WEAKNESS, NOT EATING OF DRINKING Time Seen by Provider: 02/14/17 15:17 Hx Obtained From: Patient, Family/[employer] Hx From Patient Unobtainable Due To: Altered Mental Status Onset/Duration: Still Present Timing: Constant, Lasting Days Severity Initially: Moderate Severity Currently: Moderate Character: Lethargy Associated Signs And Symptoms: Positive: Weakness - Not eating - Allergies/Home Medications Allergies/Adverse Reactions: Allergies Allergy/AdvReac Type Severity Reaction Status Date / Time No Known Allergies Allergy Verified 03/15/16 19:57 Home Medications: Home Medications Potassium Chlor TAB* [Klor Con ER TAB*] 20 meq PO EVERY OTHER DAY 02/14/17 [ History Confirmed 02/14/17] PMH/Surg Hx/FS Hx/Imm Hx Endocrine/Hematology History: Denies: Hx Diabetes Cardiovascular History: Reports: Hx Auto Implanted Cardiovert Defib, Hx Hypertension, Hx Pacemaker/ICD - FOR BRADYARRHYTHMIA, Other Cardiovascular Problems/Disorders - PNA Denies: Hx Congestive Heart Failure History: Denies: Hx Renal Disease Sensory History: Reports: Hx Contacts or Glasses, Hx Hearing Problem Opthamlomology History: Reports: Hx Contacts or Glasses Neurological History: Reports: Hx Dementia - Cancer History Cancer Type, Location 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 - Surgical History Surgery Procedure, Year, and Place: Hernia repair x 2 Infectious Disease History: Denies: History Other Infectious Disease, Traveled Outside the [place] in Last 30 Days - Family History Known Family History: Positive: Unknown - Patient is a poor historian concerning his family history. - Social History Occupation: Retired Lives: At [facility] Alcohol Use: None Substance Use Type: Reports: None Smoking Status (MU): Never Smoked Tobacco Review of Systems Negative: Fever Positive: Edema - lower extremities bilaterly. Positive: Weakness Positive: Other - lethargy. Not eating. All Other Systems Reviewed And Are Negative: Yes Physical Exam Triage Information Reviewed: Yes Vital Signs On Initial Exam: Initial Vitals Temp Pulse Resp BP Pulse Ox 97.9 F 91 18 111/69 95 02/14/17 14:41 02/14/17 14:41 02/14/17 14:41 02/14/17 14:41 02/14/17 14:41 Vital Signs Reviewed: Yes Appearance: Positive: Well-Appearing, No Pain Distress Skin: Positive: Warm, Skin Color Reflects Adequate Perfusion, Dry Head/Face: Positive: Normal Head/Face Inspection Eyes: Positive: Normal ENT: Positive: Other - somewhat dry Neck: Positive: Supple, Nontender Respiratory/Lung Sounds: Positive: Clear to Auscultation, Breath Sounds Present Cardiovascular: Positive: RRR Abdomen Description: Positive: Nontender, Soft Bowel Sounds: Positive: Present Musculoskeletal: Positive: Other - Erythematous, weak ankles medially. Begining of an ulcer ankles bilaterally. Neurological: Positive: Normal Psychiatric: Positive: Normal, Affect/Mood Appropriate - Tyra Coma Scale Coma Scale Total: 15 Diagnostics - Vital Signs Vital Signs Temp Pulse Resp BP Pulse Ox 02/14/17 15:47 98.1 F 71 18 122/60 96 02/14/17 14:41 97.9 F 91 18 111/69 95 - Laboratory Lab Results: Lab Results 02/14/17 02/14/17 02/14/17 Range/Units 16:36 16:36 16:36 WBC 11.0 H (3.5-10.8) 10^3/ul RBC 4.36 (4.0-5.4) 10^6/ul Hgb 13.8 L (14.0-18.0) g/dl Hct 42 (42-52) % MCV 97 H (80-94) fL MCH 32 H (27-31) pg MCHC 33 (31-36) g/dl RDW 13 (10.5-15) % Plt Count 194 (150-450) 10^3/ul MPV 8 (7.4-10.4) um3 Neut % (Auto) 67.8 (38-83) % Lymph % (Auto) 18.6 L (25-47) % [place] % (Auto) 11.5 H (1-9) % Eos % (Auto) 1.6 (0-6) % Baso % (Auto) 0.5 (0-2) % Absolute Neuts (auto) 7.4 (1.5-7.7) 10^3/ul Absolute Lymphs (auto) 2.0 (1.0-4.8) 10^3/ul Absolute Monos (auto) 1.3 H (0-0.8) 10^3/ul Absolute Eos (auto) 0.2 (0-0.6) 10^3/ul Absolute Basos (auto) 0.1 (0-0.2) 10^3/ul Absolute Nucleated RBC 0 10^3/ul Nucleated RBC % 0 INR (Anticoag Therapy) 1.70 H (0.89-1.11) Sodium 136 (133-145) mmol/L Potassium 3.6 (3.5-5.0) mmol/L Chloride 99 L (101-111) mmol/L Carbon Dioxide 32 (22-32) mmol/L Anion Gap 5 (2-11) mmol/L BUN 27 H (6-24) mg/dL Creatinine 0.97 (0.67-1.17) mg/dL Est GFR ( Amer) 94.4 (>60) Est GFR (Non-Af Amer) 73.4 (>60) BUN/Creatinine Ratio 27.8 H (8-20) Glucose 115 H (70-100) mg/dL Lactic Acid (0.5-2.0) mmol/L Calcium 9.1 (8.6-10.3) mg/dL Total Bilirubin 0.60 (0.2-1.0) mg/dL AST 16 (13-39) U/L ALT 11 (7-52) U/L Alkaline Phosphatase 87 (34-104) U/L Troponin I 0.02 (<0.04) ng/mL C-Reactive Protein 28.06 H (< 5.00) mg/L Total Protein 7.5 (6.4-8.9) g/dL Albumin 3.3 (3.2-5.2) g/dL Globulin 4.2 H (2-4) g/dL Albumin/Globulin Ratio 0.8 L (1-3) /18/17 Range/Units 16:36 WBC (3.5-10.8) 10^3/ul RBC (4.0-5.4) 10^6/ul Hgb (14.0-18.0) g/dl Hct (42-52) % MCV (80-94) fL MCH (27-31) pg MCHC (31-36) g/dl RDW (10.5-15) % Plt Count (150-450) 10^3/ul MPV (7.4-10.4) um3 Neut % (Auto) (38-83) % Lymph % (Auto) (25-47) % [place] % (Auto) (1-9) % Eos % (Auto) (0-6) % Baso % (Auto) (0-2) % Absolute Neuts (auto) (1.5-7.7) 10^3/ul Absolute Lymphs (auto) (1.0-4.8) 10^3/ul Absolute Monos (auto) (0-0.8) 10^3/ul Absolute Eos (auto) (0-0.6) 10^3/ul Absolute Basos (auto) (0-0.2) 10^3/ul Absolute Nucleated RBC 10^3/ul Nucleated RBC % INR (Anticoag Therapy) (0.89-1.11) Sodium (133-145) mmol/L Potassium (3.5-5.0) mmol/L Chloride (101-111) mmol/L Carbon Dioxide (22-32) mmol/L Anion Gap (2-11) mmol/L BUN (6-24) mg/dL Creatinine (0.67-1.17) mg/dL Est GFR ( Amer) (>60) Est GFR (Non-Af Amer) (>60) BUN/Creatinine Ratio (8-20) Glucose (70-100) mg/dL Lactic Acid 1.0 (0.5-2.0) mmol/L Calcium (8.6-10.3) mg/dL Total Bilirubin (0.2-1.0) mg/dL AST (13-39) U/L ALT (7-52) U/L Alkaline Phosphatase (34-104) U/L Troponin I (<0.04) ng/mL C-Reactive Protein (< 5.00) mg/L Total Protein (6.4-8.9) g/dL Albumin (3.2-5.2) g/dL Globulin (2-4) g/dL Albumin/Globulin Ratio (1-3) Result Diagrams: 02/14/17 16:36 02/14/17 16:36 Lab Statement: Any lab studies that have been ordered have been reviewed, and results considered in the medical decision making process. Altered Mental Statu Course/Dx - Course Course Of Treatment: Mr. Ellsworth was sent over for weakness. He has weeping areas on his lower legs which may just be chronic venous stasis changes or there may be some cellulitis. His WBC's are up a bit so I gave him antibiotics and fluids and asked the hop\spitalists to see him. - Diagnoses Discharge Diagnoses: Weak, Cellulitis - Provider Notifications Discussed Care Of Patient With: Dr. Leon (Hospitalist) @ [id number] - Will admit pt Discharge - Discharge Plan Condition: Stable Disposition: ADMITTED TO [facility] The documentation as recorded by the Junie middleton Alok accurately reflects the service I personally performed and the decisions made by me, Torsten Leon MD.
[2017-02-14 23:24] LABS: Urine Bilirubin Negative (Negative); Urine Glucose Negative (Negative); Urine Nitrite Negative (Negative)
--- NOTE | 2017-02-15 01:19 | HP ---
HISTORY AND PHYSICAL: DATE OF ADMISSION: 02/14/17 PRIMARY CARE PROVIDER: Michael Canada MD ATTENDING PHYSICIAN: Mikey Baker MD *(dictated by Rojas Mcgraw NP). CHIEF COMPLAINT: Lethargy. HISTORY OF PRESENT ILLNESS: Mr. 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 Mr. Ellsworth's daughter, Khadijah, reports that over the last few days her dad has not really been eating, but he has been having Boost shakes in place of his meals. She reports that they were just here in the wound clinic on Saturday, February 11. She states that they have been following with the wound clinic since he was seen here and admitted for cellulitis back in October and had ultimately been diagnosed with a pneumonia. The patient follows weekly at the wound clinic. He also has a visiting nurse that comes to his home at [place] and changes his dressings. According to the patient's daughter Kristy, the patient has otherwise been in his normal state of health. The patient's daughter Kristy reports that his legs seem to be having more drainage this week than they have typically been in the past. She actually feels though that overall his wound on his legs are improving. The patient's daughter denies any recent fevers that she is aware of or complains of chills. She states that her father has not complained of any chest pain or shortness of breath. The patient denies any urinary symptoms. While in the emergency room, the patient had labs that was significant for slight leukocytosis with white blood cell count of 11.0, CRP 28.06. Due to the patient's presentation for lethargy and concern for possible generalized weakness, the hospitalists were asked to evaluate the patient for admission. PAST MEDICAL HISTORY: 1. History of third degree block status post pacemaker implantation. 2. History of TIA, suspected to be secondary to a cardioembolic source in February 2016. 3. Paroxysmal atrial fibrillation. 4. Hypertension. PAST SURGICAL HISTORY: 1. Status post pacemaker implantation. 2. Status post excision of skin cancer from the top of his head. 3. Status post inguinal hernia repairs x2. HOME MEDICATIONS: Include: 1. Vitamin B12 1000 mcg oral daily. 2. Atorvastatin 20 mg oral daily. 3. Aspirin 81 mg oral daily. 4. Potassium 20 mEq oral every other day. 5. Hydrochlorothiazide 12.5 mg oral daily. 6. Lasix 20 mg oral every other day. 7. Xarelto 20 mg oral daily. 8. Bethel cough drops every 4 hours as needed for throat irritation or cough. 9. Claritin 10 mg oral daily. ALLERGIES: No known drug allergies. FAMILY HISTORY: The patient's brother has a history of having to need a defibrillator. The patient's father had a history of myocardial infarction and cerebrovascular accident. The patient had a grandfather with a history of diabetes mellitus. SOCIAL HISTORY: The patient denies tobacco, alcohol or recreational drug use. 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 He currently resides at [facility]. His daughter Kristy Cruz will be his surrogate decision maker in the event he is unable to male decisions for himself. REVIEW OF SYSTEMS: I performed a 14-point review of systems. All the pertinent positives and negatives are mentioned in the history of present illness. The remaining review of systems are negative. PHYSICAL EXAMINATION GENERAL APPEARANCE: The patient is alert, pleasant, appears to be in no acute distress. VITAL SIGNS: Temperature 98.1, heart rate 71, respiratory rate 18, O2 sat 96% on room air, blood pressure 122/60. HEENT: Normocephalic, atraumatic. Pupils are equal and reactive to light. Extraocular movements are intact. RESPIRATORY: There is no accessory muscle use. Lungs are clear to auscultation bilateral. CARDIOVASCULAR: Regular rate and rhythm. S1, S2 present. There is no murmurs , rubs or gallops heard. ABDOMEN: Soft, nontender, nondistended. There are bowl sounds x4. EXTREMITIES: There is 1 to 2+ bilateral lower extremity edema. Bilateral lower extremities have erythema. The patient has what appears to be venous stasis wound to bilateral lower extremities with some serous drainage noted. MUSCULOSKELETAL: There is no clubbing or cyanosis noted. The patient exhibits good strength in all extremities. NEUROLOGIC: The patient is alert and oriented to person, place and time. PSYCHOLOGICAL: The patient is calm and cooperative. SKIN: As per previously stated in the extremities, the patient has erythema of the skin that appears to be sloughed off as he has debridement weekly to bilateral lower extremities. There is some serous drainage noted. DIAGNOSTIC STUDIES/LABORATORY DATA: Sodium 136, potassium 3.6, chloride 99, CO2 32, BUN 27, creatinine 0.97 and glucose 115. White blood cell count 11.0, hemoglobin 13.8, hematocrit 42 and platelet count 194. INR 1.70, CRP 28.06. IMPRESSION: Mr. Ellsworth is an 86-year-old male with past medical history significant for third-degree heart block, transient ischemic attack, paroxysmal atrial fibrillation, hypertension and chronic lower extremity wounds who presented to the emergency room with complaints of lethargy. He will be admitted as an observation for weakness and lethargy. ASSESSMENT/PLAN: 1. Weakness. We will have a physical therapy evaluation. We will also get a urinalysis. I suspect the patient may be dehydrated as he has not been eating and drinking well and his BUN is elevated. We will give him IV fluids overnight. 2. Lower extremity wounds. The patient is followed by the wound clinic. I will ask the wound clinic to do a consult on the patient in the morning. We will continue his Arglaes powder sprinkled over his wounds with OptiLock or an absorbant layer followed by Mediwrap or Darian wraps as this is his usual wound care regimen. We will change this weekly or as needed for drainage. It is to note that the patient on January 01 had ankle branchial indices done on his lower extremities that were normal, although the waveforms of the left lower extremity were abnormal with dampened biphasic waves and there was presumed vascular calcifications and some of the vessels were not compressible. 3. History of paroxysmal atrial fibrillation. The patient will be continued on his home Xarelto. 4. History of transient ischemic attack and hyperlipidemia. The patient will be continued on atorvastatin. 5. Fluids, electrolytes and nutrition. The patient will be on a heart healthy diet. 6. Code Status. Do not resuscitate. 7. DVT prophylaxis. The patient is at highest risk and will be continued on his home Xarelto. 8. Disposition. Observation. TIME SPENT: The time for this admission was 60 minutes, 35 minutes was spent face- to-face with the patient and daughter discussing medications, past medical history and the events leading up to his arrival today and performing a physical examination. The case has been reviewed with the attending Dr. Baker, who agrees with the plan of care. Reviewed by ROJAS MCGRAW, LINUS-C 02/16/17 1640 CC: Michael Canada MD* [id number]/[facility] #: [id number] ROS
[2017-02-15 07:06] LABS: Hematocrit 37 % (42-52); Hemoglobin 12.4 g/dl (14.0-18.0); Mean Corpuscular HGB Conc 33 g/dl (31-36); Mean Corpuscular Hemoglobin 32 pg (27-31); Mean Corpuscular Volume 97 fL (80-94); Mean Platelet Volume 8 um3 (7.4-10.4); Red Blood Count 3.84 10^6/ul (4.0-5.4); Red Cell Distribution Width 13 % (10.5-15); White Blood Count 10.6 10^3/ul (3.5-10.8)
[2017-02-15 07:27] VITALS: BP 122/62
[2017-02-15 07:29] LABS: BUN/Creatinine Ratio 29.7 (8-20); Calcium 8.3 mg/dL (8.6-10.3); EGFR Non-African American 100.3 (>60); Potassium 3.4 mmol/L (3.5-5.0)
[2017-02-15] MEDS ORDERED: Cyanocobalamin TAB* 500 MCG PO SCH (09:00)
[2017-02-15] MEDS ORDERED: Aspirin Low Dose CHEW TAB* 81 MG PO SCH (09:00)
[2017-02-15] MEDS ORDERED: Hydrochlorothiazide TAB* 25 MG PO SCH (09:00)
[2017-02-15] MEDS ORDERED: Cetirizine* 10 MG TAB PO SCH (09:00)
[2017-02-15] MEDS ORDERED: Rivaroxaban TAB(*) 20 MG TAB PO SCH (09:00)
[2017-02-15] MEDS ORDERED: Potassium Chlor TAB* 10 MEQ TAB.ER PO ONE (10:18)
[2017-02-15] MEDS ORDERED: Atorvastatin* 20 MG TAB PO SCH (21:00)
[2017-02-16] MEDS ORDERED: Potassium Chlor TAB* 20 MEQ TAB.ER PO SCH (09:00)
[2017-02-16] MEDS ORDERED: Furosemide TAB* 20 MG PO SCH (09:00)
--- NOTE | 2017-02-18 08:05 | PN ---
Hospitalist Progress Note . HOSPITALIST DISCHARGE NOTE: See dc instructions and summary by me. Patient stable for dc dc instructions reviewed with the patient at the bedside. DC patient home today.
--- NOTE | 2017-02-18 11:41 | DS ---
DISCHARGE SUMMARY: DATE OF ADMISSION: 02/14/17 DATE OF DISCHARGE: 02/15/17 STATUS DURING HOSPITALIZATION: Observation. PRIMARY CARE PROVIDER: Dr. Michael Canada. PRINCIPAL DISCHARGE DIAGNOSIS: Lethargy secondary to poor oral intake, diuretic use, and dehydration. SECONDARY DIAGNOSES: 1. History of third-degree heart block status post pacemaker implantation. 2. History of transient ischemic attack secondary to be cardioembolic source February 2016 - on anticoagulation. 3. Paroxysmal atrial fibrillation. 4. Hypertension. 5. History of pacemaker implantation/excision of skin cancer from the top of his head/inguinal hernia repair x2. DISCHARGE MEDICATION REGIMEN: 1. Xarelto 20 mg by mouth daily. 2. Aspirin 81 mg by mouth daily. 3. Claritin 10 mg by mouth daily. 4. Cyanocobalamin 1000 mcg by mouth daily. 5. Furosemide 20 mg by mouth every other day. 6. Rena Lara cough drops every 4 hours as needed for cough. 7. Lipitor 20 mg by mouth at bedtime. 8. Potassium chloride supplementation 20 mEq by mouth every other day. 9. Stop hydrochlorothiazide as per dehydration and electrolyte evaluation on admission. HISTORY OF PRESENT ILLNESS AND HOSPITAL COURSE: Please see the H and P by Ness Araujo NP under the supervision of Dr. Mikey Baker. In brief, Mr. Ellsworth is an 86-year-old man with a medical history detailed above , who was brought to the emergency room by his daughter for concerns of lethargy and poor oral intake. Over the past few days, the patient has been not eating well and having Boost shakes in place with his meals. The patient is followed by the wound care clinic and they have been following cellulitis and lower extremity wound for some time. He has a visiting nurse and lives at [place]. The patient's daughter, Kristy has been also involved. The patient states that his legs have been more weepy than normally. Overall, the thinking is his wounds are improving. The patient had a slight leukocytosis at admission and an elevated CRP. The patient was placed on observation status and rehydrated overnight. There were some scattered electrolyte deficiencies including a borderline low potassium and hypomagnesemia and these were both repleted. The patient had a physical therapy evaluation and did well. His urinalysis was unremarkable. There was no indication for antibiotics. I had the wound care team see the patient and document their findings and he is going to follow up next Saturday at the wound care center. He can also follow up with Dr. Canada in the outpatient setting. The patient is being discharged after rehydration in stable condition. For more details regarding the hospitalization, please see the H and P and the wound care notes and the other elements of the medical record. TIME SPENT: Total time taken to discharge Mr. Ellsworth was 35 minutes, greater than half the time spent going over the discharge instructions face-to- face with the patient and his daughter at the bedside. CONDITION AT DISCHARGE: Stable. CC: Dr. Michael Canada* [id number]/[facility] #: [id number] MTDD
== END 2017-02-15 11:42 | disposition home or self-care (01) ==
LOC: ED 14:30 → MED 17:59
PROVIDERS: ADMIT Hospitalist; ATTEND Internal Medicine
DX: E86.0 Dehydration (principal); R53.83 Other fatigue; R53.1 Weakness; I48.0 Paroxysmal atrial fibrillation; E78.5 Hyperlipidemia, unspecified; Z95.0 Presence of cardiac pacemaker; Z86.73 Personal history of transient ischemic attack (TIA), and cerebral infarction without residual deficits; I10 Essential (primary) hypertension; Z79.01 Long term (current) use of anticoagulants; Z79.82 Long term (current) use of aspirin; Z79.899 Other long term (current) drug therapy
CPT/HCPCS: 36415; 80048; 80053; 81003; 83605; 84484; 85025; 85610; 86140; 87040; 87641; 96361; 96365; 99283; A9270-GY; G0378; G8978-GP-CI; G8979-GP-CI; G8980-GP-CI; J0690

== ENCOUNTER 2019-02-03 | Inpatient (IN) | payer MEDICARE ==
--- NOTE | 2019-02-03 01:03 | ED ---
Lower Extremity - HPI Summary HPI Summary: The patient is an 88 year old male who is presenting to the [facility] via ambulance with a chief complaint of hip pain. We are unable to receive a dictation of the present illness from the patient due to his current dementia. The patient is accompanied by his daughter who is able to describe the patient's hx. As per daughter's reports and EMS report, the patient lives in [facility] where he had reportedly fallen down and had been unable to get up. The patient was on the ground for about 10 minutes and the daughter was contacted at [phone]. Patient was in pain at the onset of the fall, but is currently not in pain as per triage report. Symptoms aggravated by nothing, and symptoms alleviated by nothing. pain is located at the left hip pain and he is also has decreased range of motion about his left leg. The pain is rated to be 0/10 in severity currently. The patient also normally uses a walker for assistance in walking. - History of Current Complaint Chief Complaint: EDHipPelvisInjury Stated Complaint: "FALL/HIP PAIN" PER EMS Time Seen by Provider: 02/03/19 00:39 Hx Obtained From: Family/Clinical Documentation Nurse - Daughter Hx From Patient Unobtainable Due To: Dementia Mechanism Of Injury: Other - Fall Onset of Pain: Immediate Severity Initially: Severe Severity Currently: None Pain Intensity: 0 Pain Scale Used: 0-10 Numeric Timing: Constant Location: Other - Right Hip Associated Signs And Symptoms: Positive: Negative Aggravating Factor(s): Nothing Alleviating Factor(s): Nothing Able to Bear Weight: No - Allergies/Home Medications Allergies/Adverse Reactions: Allergies Allergy/AdvReac Type Severity Reaction Status Date / Time No Known Allergies Allergy Verified 02/03/19 00:22 Home Medications: Home Medications Docusate Sodium [Colace] 100 mg PO DAILY 02/03/19 [History Confirmed 02/03/19] Donepezil HCl [Aricept] 10 mg PO DAILY 02/03/19 [History Confirmed 02/03/19] Magnesium Hydroxide LIQ* [Milk of Magnesia LIQ*] 30 ml PO BID PRN 02/03/19 [ History Confirmed 02/03/19] Melatonin 5 mg PO QPM 02/03/19 [History Confirmed 02/03/19] Mirabegron (NF) [Myrbetriq (NF)] 1 tab PO DAILY 02/03/19 [History Confirmed 04/17] Solifenacin Succinate [Vesicare] 1 tab PO DAILY 02/03/19 [History Confirmed 04/17] PMH/Surg Hx/FS Hx/Imm Hx Endocrine/Hematology History: Denies: Hx Diabetes Cardiovascular History: Reports: Hx Auto Implanted Cardiovert Defib, Hx Pacemaker/ICD - FOR BRADYARRHYTHMIA, Other Cardiovascular Problems/Disorders - PNA Denies: Hx Congestive Heart Failure, Hx Hypertension Respiratory History: Denies: Hx Chronic Obstructive Pulmonary Disease (COPD) GI History: Reports: Hx Hiatal Hernia, Other GI Disorders - Inguinal hernias History: Reports: Hx Benign Prostatic Hyperplasia Denies: Hx Dialysis, Hx Renal Disease Musculoskeletal History: Denies: Hx Back Problems Sensory History: Reports: Hx Contacts or Glasses, Hx Hearing Aid, Hx Hearing Problem Opthamlomology History: Reports: Hx Contacts or Glasses Neurological History: Reports: Hx Transient Ischemic Attacks (TIA) - February 2016 Denies: Hx Dementia, Hx Seizures - Cancer History Cancer Type, Location 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 - Surgical History Surgery Procedure, Year, and Place: Hernia repair x 2 - Immunization History Date of Tetanus Vaccine: utd Date of Influenza Vaccine: fall 2017 Infectious Disease History: No Infectious Disease History: Denies: History Other Infectious Disease, Traveled Outside the [place] in Last 30 Days - Family History Known Family History: Positive: Unknown - Patient is a poor historian concerning his family history. - Social History Occupation: Retired Lives: At [facility] Alcohol Use: None Substance Use Type: Reports: None Smoking Status (MU): Never Smoked Tobacco Review of Systems Constitutional: Negative Eyes: Negative ENT: Negative Cardiovascular: Negative Respiratory: Negative Gastrointestinal: Negative Genitourinary: Negative Musculoskeletal: Other - Left Hip pain Positive: Decreased ROM - Left Leg Skin: Negative Neurological: Other - Dementia Psychological: Normal All Other Systems Reviewed And Are Negative: Yes Physical Exam - Summary Physical Exam Summary: VITAL SIGNS: Reviewed. GENERAL: Patient is a well-developed and nourished (MALE) who is lying comfortable in the stretcher. Patient is not in any acute respiratory distress. HEAD AND FACE: No signs of trauma. No ecchymosis, hematomas or skull depressions. No sinus tenderness. EYES: PERRLA, EOMI x 2, No injected conjunctiva, no nystagmus. EARS: Hearing grossly intact. Ear canals and tympanic membranes are within normal limits. MOUTH: Oropharynx within normal limits. NECK: Supple, trachea is midline, no adenopathy, no JVD, no carotid bruit, no c- spine tenderness, neck with full ROM CHEST: Symmetric, no tenderness at palpation LUNGS: Clear to auscultation bilaterally. No wheezing or crackles. CVS: Regular rate and rhythm, S1 and S2 present, no murmurs or gallops appreciated. ABDOMEN: Soft, non-tender. No signs of distention. No rebound no guarding, and no masses palpated. Bowel sounds are normal. EXTREMITIES: Left lower extremity is short and externally rotated NEURO: Alert and oriented x 3. No acute neurological deficits. Speech is normal and follows commands. SKIN: Dry and warm Triage Information Reviewed: Yes Vital Signs On Initial Exam: Initial Vitals Temp Pulse Resp BP Pulse Ox 98.1 F 79 18 146/90 86 02/03/19 00:21 02/03/19 00:21 02/03/19 00:21 02/03/19 00:21 02/03/19 00:21 Vital Signs Reviewed: Yes Diagnostics - Vital Signs Vital Signs Temp Pulse Resp BP Pulse Ox 02/03/19 00:21 98.1 F 79 18 146/90 86 - Laboratory Result Diagrams: 02/03/19 02:00 02/03/19 02:00 Lab Statement: Any lab studies that have been ordered have been reviewed, and results considered in the medical decision making process. - Radiology Chest X-ray Radiology Interpretation Completed By: ED Physician Summary of Radiographic Findings: CXR reveals no acute process as per ED Physician. Hip X-Ray Radiology Interpretation Completed By: ED Physician Summary of Radiographic Findings: Hip X-ray reveals as per ED Physician left femoral neck fracture. - EKG 0108 EKG Rhythm: Sinus Rhythm - 80 BPM Summary of EKG Findings: An EKG at 0108 reveals sinus rhythm 80 bpm with paced rhythm. Lower Extremity Course/Dx - Course Course Of Treatment: The patient is a 88 year old male who is presenting to the [facility] with a chief complaint of left hip pain s/p fall. He is a dementia patient and is unable to dictate his own hx. The fall had occurred in [facility] in which the patient was on the ground for around 10 min as per daughter's report. He was transported to the [facility] via ambulance. He was given a chest X-ray, hip X-ray and an EKG. We discussed patient care with Dr. Bernard at 0240 and she accepts patient care. The patient will be admitted to the [facility] with a dx of Left Hip fracture. - Diagnoses Provider Diagnoses: Hip fracture, left Discharge - Sign-Out/Discharge Documenting (check all that apply): Patient Departure - Discharge Plan Condition: Stable Disposition: ADMITTED TO [facility] Referrals: Michael Canada MD [Primary Care Provider] - - Attestation Statements Document Initiated by Scribe: Yes Documenting Scribe: Hector Ortega Provider For Whom Scribe is Documenting (Include Credential): Dr. Minnie Carmona Scribshell Attestation: Hector Nolan, scribed for Dr. Minnie Carmona on 02/03/19 at 0242. Status of Scribe Document: Ready
[2019-02-03] MEDS ORDERED: Ondansetron INJ* 2 MG/ML VIAL IV ONE (01:05)
[2019-02-03] MEDS ORDERED: Morphine 4 MG/ML VIAL (1 ml) 4 MG/ML VIAL IV ONE ×2 (01:05→03:16)
[2019-02-03 02:09] LABS: ABS Basophils 0.1 10^3/ul (0-0.2); ABS Eosinophils 0.1 10^3/ul (0-0.6); ABS Lymphocytes 1.9 10^3/ul (1.0-4.8); ABS Monocytes 0.5 10^3/ul (0-0.8); ABS Neutrophils 6.7 10^3/ul (1.5-7.7); Eosinophil % 0.9 %; Hematocrit 41 % (42-52); Hemoglobin 13.8 g/dL (14.0-18.0); Lymphocyte % 21.1 %; Mean Corpuscular HGB Conc 33 g/dL (31-36); Mean Corpuscular Hemoglobin 33 pg (27-31); Mean Corpuscular Volume 99 fL (80-94); Mean Platelet Volume 8.8 fL (7.4-10.4); Platelet Count 155 10^3/uL (150-450); Red Blood Count 4.18 10^6 /uL (4.18-5.48); Red Cell Distribution Width 13 % (10.5-15); White Blood Count 9.2 10^3/uL (3.5-10.8)
[2019-02-03 02:18] LABS: Activated Partial Thrombo Time 35.7 seconds (26.0-36.3); INR 1.98 (0.82-1.09)
[2019-02-03 02:27] LABS: Albumin 3.5 g/dL (3.2-5.2); BUN/Creatinine Ratio 17.7 (8-20); Calcium 9.1 mg/dL (8.6-10.3); EGFR Non-African American 92.6 (>60); Globulin 3.6 g/dL (2-4); Potassium 3.7 mmol/L (3.5-5.0); Total Bilirubin 0.6 mg/dL (0.2-1.0); Total Protein 7.1 g/dL (6.4-8.9)
[2019-02-03] MEDS ORDERED: Magnesium Hydroxide LIQ* 30 ML UDC PO PRN (03:18)
[2019-02-03] MEDS ORDERED: oxyCODONE/Acetamin 5/325 MG* TAB PO PRN (03:23)
[2019-02-03] MEDS ORDERED: Morphine INJ* 2 MG/ML 1 ML SYRINGE (TWO MG - NEW SYRINGE VERSION) IV PRN (03:23)
[2019-02-03 03:59] LABS: Magnesium 1.9 mg/dL (1.9-2.7)
[2019-02-03 04:02] LABS: Troponin I 0.01 ng/mL (<0.04)
[2019-02-03] MEDS: Acetaminophen TAB* 325 MG PO SCH ×4 (05:35→23:16)
[2019-02-03 05:58] LABS: ABS Lymphocytes 1.1 10^3/ul (1.0-4.8); ABS Monocytes 0.8 10^3/ul (0-0.8); ABS Neutrophils 15.9 10^3/ul (1.5-7.7); Eosinophil % 0.1 %; Hematocrit 45 % (42-52); Hemoglobin 14.8 g/dL (14.0-18.0); Lymphocyte % 5.9 %; Mean Corpuscular HGB Conc 33 g/dL (31-36); Mean Corpuscular Hemoglobin 33 pg (27-31); Mean Corpuscular Volume 100 fL (80-94); Mean Platelet Volume 8.7 fL (7.4-10.4); Platelet Count 161 10^3/uL (150-450); Red Cell Distribution Width 14 % (10.5-15); White Blood Count 17.8 10^3/uL (3.5-10.8)
[2019-02-03 05:59] LABS: INR 1.75 (0.82-1.09)
--- NOTE | 2019-02-03 06:01 | HP ---
CC: Michael Canada MD * HISTORY AND PHYSICAL: DATE OF ADMISSION: 02/03/19 TIME OF EVALUATION: 0300 PRIMARY CARE PHYSICIAN: Michael Canada MD. CHIEF COMPLAINT: Fall with left hip pain. HISTORY OF PRESENT ILLNESS: This is an 88-year-old male with a past medical history of moderate dementia who presented from [place] after having an unwitnessed fall. The patient is unable to provide me the history. The daughter, who is the healthcare proxy, tells me she got a call near midnight that the patient was found on the ground next to his bed. The patient states he fell out of bed, but it did not seem entirely clear. The patient was last seen by the daughter yesterday and he was in his usual state of health. He normally ambulates with a walker. No complaints of chest pain or shortness of breath. No complaints of not tolerating p.o., vomiting or diarrhea. They normally follow with Dr. Sorenson for his pacemaker. He gets his pacemaker evaluated and sees Dr. Sorenson every 6 months and has not had any issues. She believes his pacemaker was last evaluated back in September. Otherwise, unable to obtain review of systems. In the emergency room, the patient had labs and imaging, was found to have a left femoral neck fracture, and was referred to the hospitalist service for further evaluation. PAST MEDICAL HISTORY: 1. Paroxysmal atrial fibrillation, on anticoagulation. 2. History of a TIA. 3. History of a third-degree heart block, status post pacemaker placement. 4. Hypertension. 5. Moderate dementia. 6. Hyperlipidemia. 7. BPH. MEDICATIONS: 1. Aspirin 81 mg p.o. daily. 2. Colace 100 mg p.o. daily. 3. Donepezil 10 mg p.o. daily. 4. Lasix 20 mg every other day. 5. Lipitor 20 mg daily. 6. Melatonin 5 mg daily. 7. Multivitamin daily. 8. Myrbetriq tablet 50 mg p.o. daily. 9. Potassium chloride 20 mEq p.o. daily. 10. VESIcare p.o. daily. 11. Vitamin B12 at 1000 mcg daily. 12. Xarelto 20 mg p.o. daily. 13. Cough drops as needed. 14. Tylenol 650 mg every 4 hours as needed. (Of note, the patient has hearing aids he should be wearing.) ALLERGIES: No known drug allergies. FAMILY HISTORY: Reviewed and noncontributory. SOCIAL HISTORY: The patient lives at [place]. He ambulates with a walker. His healthcare proxy is his daughter, Kristy Cruz, phone number [phone]. No history of smoking, alcohol, or illicit drug use. His code status is confirmed; he is a DNR/DNI. REVIEW OF SYSTEMS: Unable to obtain review of systems due to the patient's dementia. PHYSICAL EXAMINATION GENERAL: A frail elderly man, in no acute distress. Daughter at the bedside. VITAL SIGNS: Temp 98.1, pulse rate 79, respiratory rate 18, oxygen saturation 97% on 2 L, blood pressure 146/90. HEENT: Head: Normocephalic. Pupils are equal and reactive, anicteric. Oropharynx: Mucous membranes are moist. NECK: Supple. No adenopathy. CARDIAC: Regular rate and rhythm. Soft systolic murmur heard throughout. RESPIRATORY: Diminished breath sounds. No wheezes, rhonchi, or rales. ABDOMEN: Positive bowel sounds. Soft, nontender, and nondistended. EXTREMITIES: The patient with trace pretibial bilateral edema. His left lower extremity is short and externally rotated; +1 DPs. NEUROLOGIC: He is alert and oriented x1, oriented to self only. No gross focal neurologic deficits. DIAGNOSTIC STUDIES/LAB DATA: Laboratory Data: White count 9.2, hemoglobin 13.8 , hematocrit 41, platelets 155. INR is 1.98. Sodium 138, potassium 3.7, chloride 104, bicarb 27, BUN 14, creatinine 0.79, glucose 110. Radiographic Data: Atrial AV paced rhythm. X-ray of left hip, femoral neck fracture. Chest x-ray, wet read unremarkable. ASSESSMENT AND PLAN: This is an 88-year-old man with past medical history of paroxysmal atrial fibrillation, on anticoagulation, who had a fall at [place] and found to have a left hip fracture. 1. Left hip fracture with fall. The patient with an unwitnessed fall, though with his age and comorbidities, it was likely mechanical, but unclear. His initial workup was unremarkable for infection. No elevated white count. No fever. I am awaiting UA. Plan: There is no absolute contraindication to proceeding with surgery. He has an RCRI score of 1; however, he is high risk due to his age and his comorbidities. He is also high risk for postop delirium with his moderate dementia. Plan: We will admit him to surgical short stay on telemetry. We will continue him on morphine. We will place a Ventura catheter. We will follow up on UA. Recommend having his pacemaker checked prior to proceeding with surgery. We are holding his Xarelto and his aspirin. His INR needs to come down prior to proceeding with surgery. We will keep him n.p.o. for now in case his lab studies do normalize. We will touch base with ortho in the morning. Keep him on bedrest. Will check an echo prior to surgery in setting of an unwitnessed fall. 2. Chronic medical problems. We will continue his home medications, with the exception of the aspirin and the Xarelto. We will also hold his Lasix in the setting of being n.p.o. 3. FEN: As mentioned, n.p.o. with gentle IV fluids. 4. DVT prophylaxis. The patient scores high risk. We will start him in the morning, which will be 24 hours after he has been off Xarelto, with heparin 5000 units subcu t.i.d. 5. Code status. He is a DNR/DNI. Discussed that this would need to be rescinded. The patient's mental capacity and extent would need to be obtained by the daughter. PATIENT TIME: Greater than 40 minutes was spent doing the history and physical , half the time spent in direct patient contact. [id number]/[facility] #: [id number] ROS
[2019-02-03] MEDS: NS 0.9% 1000 ML** 1,000 ML IV SCH ×2 (06:25→21:01)
[2019-02-03 07:31] LABS: Urine Appearance Cloudy; Urine Bacteria Absent (Absent); Urine Bilirubin Negative (Negative); Urine Blood 2+ (Negative); Urine Color Amber; Urine Glucose Negative (Negative); Urine Ketones Trace (Negative); Urine Nitrite Negative (Negative); Urine Protein 2+(100 mg/dL) (Negative); Urine Red Blood Cell 3+(>10/hpf) (Absent); Urine Specific Gravity 1.021 (1.010-1.030); Urine Squamous Epithelial Cell Present (Absent); Urine Urobilinogen Negative (Negative); Urine White Blood Cell Absent (Absent)
--- NOTE | 2019-02-03 07:45 | PN ---
Progress Note - Progress Note Date of Service: 02/03/19 SOAP: Subjective: 88 yo admitted with left hip pain. Unwitnessed fall at [facility] . Pt with Dementia. Not able to answer questions. On xarelto for AFib. xray's in ER show a subcapital left hip fracture. Pt normally does ambulate with a walker at the facility. [] Objective: H/H 14.8/45. Inr 1.75. Pt not answering questions. did wiggle toes when asked. left hip no skin breakdown. some mild shortening of the left leg. Both legs externally rotated. Some mild bilateral peripheral edema. [] Assessment: Left Subcapital hip fracture . [] Plan: To or for left hip hemiarthroplasty when medically cleared. Continue to hold xarelto . America Quinones, PAC. []
[2019-02-03] MEDS ORDERED: LoraTADine TAB(NF) 10 MG TAB (AUTOSUB to CETIRIZINE) PO SCH (09:00)
--- NOTE | 2019-02-03 09:05 | ECHO ---
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 History: PMH: Atrial fibrillation. 3rd degree heart block. Risk factors: Hypertension. Dyslipidemia. Labs, prior tests, procedures, and surgery: Permanent pacemaker system implantation (2006). Conclusions Summary: 1. Left ventricle: The cavity size is normal. Wall thickness is mildly increased. Systolic function is at the lower limits of normal. The estimated ejection fraction is 50-55%, by visual assessment. 2. Right ventricle: Pacer wire noted in the right ventricle. Systolic pressure is mildly increased. The RV pressure during systole by Doppler is 44 mm Hg. 3. Ventricular septum: There is abnormal interventricular septal wall motion consistent with an RV pacemaker. 4. Mitral valve: There is trivial regurgitation. 5. Aortic valve: There is no evidence of stenosis. 6. Tricuspid valve: There is mild-moderate regurgitation. 7. Impressions: The study is unchanged since the study of 03/16/2016. Study data: Transthoracic echocardiogram. Procedure: Transthoracic echocardiography was performed. Image quality was fair. The study was technically limited due to poor patient compliance. Complete 2D, spectral Doppler, and color flow Doppler. Location: Bedside. Patient status: Inpatient. Patient room number: 336. The previous study was not available, so comparison is made to the report of 03/16/2016. Rhythm: Paced rhythm. Findings Left ventricle: The cavity size is normal. Wall thickness is mildly increased. Systolic function is at the lower limits of normal. The estimated ejection fraction is 50-55%, by visual assessment. Wall motion is normal; there are no regional wall motion abnormalities. Left ventricular diastolic function parameters are indeterminate. Right ventricle: The cavity size is moderately dilated. Pacer wire noted in the right ventricle. Systolic function is mildly reduced. Systolic pressure is mildly increased. Ventricular septum: There is abnormal interventricular septal wall motion consistent with an RV pacemaker. Left atrium: The atrium is moderately dilated. Right atrium: The atrium is mildly to moderately dilated. Pacer wire noted in right atrium. Mitral valve: The leaflets are mildly thickened. There is no evidence of stenosis. There is trivial regurgitation. The peak diastolic gradient is 2.3 mm Hg. Aortic valve: The valve is trileaflet. The leaflets are mildly thickened. There is no evidence of stenosis. There is no significant regurgitation. The mean systolic gradient is 2.0 mm Hg. The peak systolic gradient is 4.0 mm Hg. Tricuspid valve: The leaflets are normal thickness. There is no evidence of stenosis. There is mild-moderate regurgitation. Pulmonic valve: The leaflets are normal thickness. There is no evidence of stenosis. There is trivial regurgitation. The peak systolic gradient is 4.0 mm Hg. Aorta: Ascending aorta: The ascending aorta is appears normal. Aortic arch: The aortic arch is appears normal. The aortic root is not dilated. Pericardium: A prominent pericardial fat pad is present. There is no significant pericardial effusion. Pulmonary arteries: The main pulmonary artery is normal-sized. Systemic veins: Inferior vena cava: The vessel is normal in size. The respirophasic diameter changes are in the normal range (>= 50%). Measurements Left ventricle Value Ref Right atrium Value Ref NATALIE, LAX (L) 3.8 cm 4.2 - 5.8 SI dim, ES (H) 5.5 cm 3.4 - 5.3 ESD, LAX 2.5 cm 2.5 - 4.0 ML dim, ES, A4C (H) 5.5 cm 2.6 - 4.4 FS, LAX 32 % 25 - 43 SI dim, ES, A4C (H) 5.5 cm 3.4 - 5.3 PW, ED, LAX (H) 1.1 cm 0.6 - 1.0 Estimated RAP 3 mm Hg --------- NATALIE (L) 3.8 cm 4.2 - 5.8 ESD 2.5 cm 2.5 - 4.0 Aortic valve Value Ref FS 32 % 25 - 43 Spring diam, ED 2.0 cm --------- PW, ED (H) 1.1 cm 0.6 - 1.0 Peak v, S 0.98 m/sec --------- EF 62 % 52 - 72 Mean v, S 0.64 m/sec --------- Mass 129 g 96 - 200 VTI, S 15.2 cm --------- Mass/bsa 67 g/m^2 50 - 102 Mean grad, S 2.0 mm Hg --------- Mass/ht 75.80 g/m --------- Peak grad, S 4.0 mm Hg --------- Mass/ht^2.7 30.70 g/m^2.7 --------- E', lat spring, TDI (L) 6.3 cm/sec >=10.0 Mitral valve Value Ref E/e', lat spring, 12 --------- Peak E 0.76 m/sec ------- -- TDI Decel time 203 ms --------- E', med spring, TDI 8.3 cm/sec >=7.0 Peak grad, D 2.3 mm Hg ---- ----- E/e', med spring, 9 --------- TDI Tricuspid valve Value Ref E', avg, TDI 7.3 cm/sec --------- TR peak v (H) 3.2 m/sec <=2. 8 E/e', avg, TDI 10 <=14 Peak RV-RA grad, S 41 mm Hg ---- ----- LVOT Value Ref Aortic root Value Ref Peak jose, S 0.54 m/sec --------- Root diam 3.4 cm <4.1 Mean jose, S 0.43 m/sec --------- Mean grad, S 1 mm Hg --------- Ascending aorta Value Ref AAo AP diam, S 3.5 cm --------- Ventricular septum Value Ref IVS, ED, LAX (H) 1.1 cm 0.6 - 1.0 Aortic arch Value Ref IVS, ED (H) 1.1 cm 0.6 - 1.0 Arch diam 2.6 cm --------- Right ventricle Value Ref Decending aorta Value Ref NATALIE, LAX 3.4 cm --------- Jadon peak jose 0.57 m/sec --------- NATALIE minor ax, A4C (H) 5.1 cm 1.9 - 3.5 mid Pulmonary artery Value Ref Pressure, S 44 mm Hg --------- Pressure, S 40.0 mm Hg --------- Left atrium Value Ref Inferior vena cava Value Ref AP dim, ES 3.40 cm 3.00 - Diam 1.7 cm --------- 4.00 ML dim, A4C 4.4 cm --------- SI dim, A4C 5.8 cm --------- Vol/bsa, ES, 1-p 33 ml/m^2 12 - 37 A4C Vol/bsa, ES, A/L (H) 42 ml/m^2 16 - 34 Legend: (L) and (H) cheyanne values outside specified reference range. Prepared and electronically signed by Josh Sorenson MD 02/03/2019 09:04
[2019-02-03] MEDS: Heparin VIAL(*) 5000 UNITS/ML VIAL (FIVE THOUSAND) SUBCUT SCH ×3 (09:31→23:15)
[2019-02-03] MEDS: Docusate CAP* 100 MG PO SCH (09:38)
[2019-02-03] MEDS: CMCS: Solifenacin(NF) 5 MG TAB PO SCH (09:39)
[2019-02-03] MEDS: Senna TAB PO SCH ×2 (09:39→21:02)
[2019-02-03] MEDS: Donepezil TAB* 5 MG PO SCH (09:39)
[2019-02-03] MEDS: Cyanocobalamin TAB* 500 MCG PO SCH (09:48)
--- NOTE | 2019-02-03 12:39 | PN ---
Subjective Date of Service: 02/03/19 Interval History: Mr. Ellsworth is feeling well this morning. He was able to wake and speak a few sentences to me before falling asleep again. He denies pain, but had recently received pain medication according to daughter at bedside. Daughter offers no complaints and reports the patient has only complained of pain while awake, but has been sleeping most of the time since arriving on the floor. Nursing requesting MOLST form to be signed by provider. Family History: Unchanged from Admission Social History: Unchanged from Admission Past Medical History: Unchanged from Admission Objective Active Medications: Acetaminophen (Tylenol Tab*) 650 mg PO Q6H [facility] Atorvastatin Calcium (Lipitor*) 20 mg PO BEDTIME [facility] Cyanocobalamin (Vitamin B12 Tab*) 1,000 mcg PO DAILY [facility] Docusate Sodium (Colace Cap*) 100 mg PO DAILY [facility] Donepezil HCl (Aricept Tab*) 10 mg PO DAILY [facility] Heparin Sodium (Porcine) (Heparin Vial(*)) 5,000 units SUBCUT Q8HR [facility] Sodium Chloride (Ns 0.9% 1000 Ml) 1,000 mls @ 75 mls/hr IV PER RATE [facility] Magnesium Hydroxide (Milk Of Magnesia Liq*) 30 ml PO BID PRN CONSTIPATION Melatonin (Melatonin) 6 mg PO BEDTIME [facility] Morphine Sulfate (Morphine Inj (Syringe))*) 2 mg IV Q4H PRN PAIN - MILD Oxycodone/Acetaminophen (Percocet 5/325 Tab*) 1 tab PO Q4H PRN Pain Senna (Senokot Tab*) 1 tab PO BID [facility] Solifenacin (Vesicare(Nf)) 5 mg PO DAILY [facility] Vital Signs - 8 hr 02/03/19 02/03/19 02/03/19 04:53 05:00 05:23 Temperature Pulse Rate 62 64 60 Respiratory Rate Blood Pressure 110/63 106/60 (mmHg) O2 Sat by Pulse 99 97 96 Oximetry 02/03/19 02/03/19 02/03/19 05:47 05:53 06:15 Temperature 99.4 F 99.6 F Pulse Rate 60 60 61 Respiratory 18 20 Rate Blood Pressure 106/60 111/59 119/58 (mmHg) O2 Sat by Pulse 97 97 100 Oximetry 02/03/19 02/03/19 02/03/19 06:49 08:00 08:28 Temperature 100.1 F Pulse Rate 59 Respiratory 18 18 16 Rate Blood Pressure 114/56 (mmHg) O2 Sat by Pulse 98 Oximetry Oxygen Devices in Use Now: Nasal Cannula - 2L Appearance: Elderly male laying in bed in NAD Eyes: No Scleral Icterus Ears/Nose/Mouth/Throat: Mucous Membranes Moist Neck: NL Appearance and Movements; NL JVP, Trachea Midline Respiratory: Symmetrical Chest Expansion and Respiratory Effort, Clear to Auscultation Cardiovascular: NL Sounds; No Murmurs; No JVD, RRR Abdominal: NL Sounds; No Tenderness; No Distention Extremities: No Edema Neurological: - - Awakens to voice; Oriented to self Lines/Tubes/Other Access: Clean, Dry and Intact Peripheral IV Nutrition: Taking PO's Result Diagrams: 02/04/19 05:10 02/04/19 05:10 Assess/Plan/Problems-Billing Assessment: Mr. Ellsworth is an 88 yo M with PMH of afib, TIA, third degree heart block s/p pacer, HTN, HLD, dementia, and BPH; who presented to the ED after a fall with subsequent left hip pain and was found to have a left hip fracture. - Patient Problems (1) Closed left hip fracture Code(s): S72.002A - FRACTURE OF UNSP PART OF NECK OF LEFT FEMUR, INIT Comment : - Secondary to fall, likely mechanical but unclear due to dementia - Xray shows displaced left femoral neck fracture - Management per Ortho; plan for ORIF tomorrow after 1400 - Continue morphine, Percocet, Tylenol (2) PAF (paroxysmal atrial fibrillation) Code(s): I48.0 - PAROXYSMAL ATRIAL FIBRILLATION Comment: - EKG shows 100% paced rhythm - Hold Xarelto (3) HTN (hypertension) Code(s): I10 - ESSENTIAL (PRIMARY) HYPERTENSION Comment: - Normotensive, SBP 110s - Hold furosemide preoperatively (4) Dementia Code(s): F03.90 - UNSPECIFIED DEMENTIA WITHOUT BEHAVIORAL DISTURBANCE Comment : - Continue Aricept (5) Hyperlipidemia Code(s): E78.5 - HYPERLIPIDEMIA, UNSPECIFIED Comment: - Continue atorvastatin (6) BPH (benign prostatic hyperplasia) Code(s): N40.0 - BENIGN PROSTATIC HYPERPLASIA WITHOUT LOWER URINRY TRACT SYMP Comment: - Ventura placed in ED - Continue Vesicare (7) DVT prophylaxis Comment: - Heparin SQ (8) DNR (do not resuscitate) Comment: Status and Disposition: Inpatient. Anticipate d/c to [facility] when medically stable and cleared by Ortho. According to the Revised Cardiac Risk Index, the patient has a score of 1 point indicating an 6% risk of major cardiac event. The patients METS score is 3.63. EKG personally reviewed shows 100% paced rhythm. Echo shows EF 50-50%, no significant valvular abnormalities, and consistent with previous echo from 2016. Pacer interrogation shows 0 episodes of ventricular arrhythmias and a minimal number of episodes of afib with RVR. He does not require any further cardiac workup. He is a high risk patient due to his age and comorbidities. The patient has been medically optimized for surgery on with Dr. Beavers. Attending: Keturah Leon
[2019-02-03] MEDS: Melatonin 3 MG TAB PO SCH (20:57)
[2019-02-03] MEDS: Atorvastatin* 20 MG TAB PO SCH (21:02)
[2019-02-04] MEDS ORDERED: Ondansetron INJ* 2 MG/ML VIAL IV PRN (04:43)
--- NOTE | 2019-02-04 04:44 | PN ---
Progress Note - Progress Note Date of Service: 02/04/19 Note: Patient vomited this evening. Concern for possible aspiration as the needed to use suction. Patient's head of the bed is elevated. No changes in vitals. Continue with aspiration precautions. Zofran prn ordered
[2019-02-04] MEDS: Acetaminophen TAB* 325 MG PO SCH ×4 (05:24→21:34)
[2019-02-04 05:34] LABS: ABS Lymphocytes 0.9 10^3/ul (1.0-4.8); ABS Monocytes 0.8 10^3/ul (0-0.8); ABS Neutrophils 19.1 10^3/ul (1.5-7.7); Eosinophil % 0.1 %; Hematocrit 42 % (42-52); Hemoglobin 13.9 g/dL (14.0-18.0); Lymphocyte % 4.1 %; Mean Corpuscular HGB Conc 33 g/dL (31-36); Mean Corpuscular Hemoglobin 33 pg (27-31); Mean Corpuscular Volume 99 fL (80-94); Mean Platelet Volume 9.1 fL (7.4-10.4); Nucleated Red Blood Cells % 0.1; Platelet Count 126 10^3/uL (150-450); Red Blood Count 4.22 10^6 /uL (4.18-5.48); Red Cell Distribution Width 13 % (10.5-15); White Blood Count 20.8 10^3/uL (3.5-10.8)
[2019-02-04 05:39] LABS: INR 1.52 (0.82-1.09)
[2019-02-04] MEDS: PROCHLORPERAZINE INJ 5 MG/ML 2 ML VIAL IV PRN ×2 (05:41→19:41)
[2019-02-04] MEDS: Heparin VIAL(*) 5000 UNITS/ML VIAL (FIVE THOUSAND) SUBCUT SCH ×3 (05:43→21:44)
[2019-02-04 05:55] LABS: BUN/Creatinine Ratio 23.6 (8-20); Calcium 9.1 mg/dL (8.6-10.3); EGFR African American 97.6 (>60); EGFR Non-African American 80.7 (>60); Magnesium 1.8 mg/dL (1.9-2.7); Potassium 4.2 mmol/L (3.5-5.0)
[2019-02-04] MEDS: Donepezil TAB* 5 MG PO SCH (09:19)
[2019-02-04] MEDS: Cyanocobalamin TAB* 500 MCG PO SCH (09:19)
[2019-02-04] MEDS: CMCS: Solifenacin(NF) 5 MG TAB PO SCH (09:19)
[2019-02-04] MEDS: Senna TAB PO SCH ×2 (09:19→21:34)
[2019-02-04] MEDS: Docusate CAP* 100 MG PO SCH (09:19)
[2019-02-04] MEDS: NS 0.9% 1000 ML** 1,000 ML IV SCH (10:27)
[2019-02-04] MEDS ORDERED: Magnesium Sulfate 2 GM IV* 2 GM/50 ML BAG IVPB ONE (15:17)
--- NOTE | 2019-02-04 15:24 | PN ---
Subjective Date of Service: 02/04/19 Interval History: Mr. Ellsworth is feeling fine this morning. He is sitting in bed and awake on my arrival, but has a somewhat delayed response. He offers no complaints. He denies CP, SOB, N/V. No hip pain. No concerns from nursing. Family History: Unchanged from Admission Social History: Unchanged from Admission Past Medical History: Unchanged from Admission Objective Active Medications: Acetaminophen (Tylenol Tab*) 650 mg PO Q6H [facility] Atorvastatin Calcium (Lipitor*) 20 mg PO BEDTIME [facility] Cyanocobalamin (Vitamin B12 Tab*) 1,000 mcg PO DAILY [facility] Docusate Sodium (Colace Cap*) 100 mg PO DAILY [facility] Donepezil HCl (Aricept Tab*) 10 mg PO DAILY [facility] Heparin Sodium (Porcine) (Heparin Vial(*)) 5,000 units SUBCUT Q8HR [facility] Sodium Chloride (Ns 0.9% 1000 Ml) 1,000 mls @ 75 mls/hr IV PER RATE [facility] Magnesium Sulfate (Magnesium Sulfate 2 Gm Iv*) 2 gm in 50 mls @ 50 mls/hr IVPB ONCE ONE Magnesium Hydroxide (Milk Of Magnesia Liq*) 30 ml PO BID PRN CONSTIP[facility] Melatonin (Melatonin) 6 mg PO BEDTIME [facility] Morphine Sulfate (Morphine Inj (Syringe))*) 2 mg IV Q4H PRN PAIN - MILD Oxycodone/Acetaminophen (Percocet 5/325 Tab*) 1 tab PO Q4H PRN Pain Prochlorperazine Edisylate (Compazine Inj*) 5 mg IV Q6H PRN NAUSEA/VOMITING Senna (Senokot Tab*) 1 tab PO BID [facility] Solifenacin (Vesicare(Nf)) 5 mg PO DAILY [facility] Vital Signs - 8 hr 02/04/19 02/04/19 02/04/19 07:48 08:15 10:21 Temperature 99.0 F Pulse Rate 98 91 Respiratory 16 16 Rate Blood Pressure 100/62 103/55 (mmHg) O2 Sat by Pulse 97 96 Oximetry 02/04/19 11:11 Temperature 97.6 F Pulse Rate 101 Respiratory 16 Rate Blood Pressure 109/65 (mmHg) O2 Sat by Pulse 94 Oximetry Oxygen Devices in Use Now: None Appearance: Elderly male sitting in bed in NAD Eyes: No Scleral Icterus Ears/Nose/Mouth/Throat: Mucous Membranes Moist Neck: NL Appearance and Movements; NL JVP, Trachea Midline Respiratory: Symmetrical Chest Expansion and Respiratory Effort, Clear to Auscultation Cardiovascular: NL Sounds; No Murmurs; No JVD Abdominal: NL Sounds; No Tenderness; No Distention Extremities: No Edema Neurological: - - Oriented to self Lines/Tubes/Other Access: Clean, Dry and Intact Peripheral IV Nutrition: Taking PO's Result Diagrams: 02/04/19 05:10 02/04/19 05:10 Assess/Plan/Problems-Billing Assessment: Mr. Ellsworth is an 88 yo M with PMH of afib, TIA, third degree heart block s/p pacer, HTN, HLD, dementia, and BPH; who presented to the ED after a fall with subsequent left hip pain and was found to have a left hip fracture. - Patient Problems (1) Closed left hip fracture Code(s): S72.002A - FRACTURE OF UNSP PART OF NECK OF LEFT FEMUR, INIT Comment : - Secondary to fall, likely mechanical but unclear due to dementia - Xray shows displaced left femoral neck fracture - Last dose of Xarelto was 02/02/19 AM - Management per Ortho; plan for ORIF tomorrow - Continue morphine, Percocet, Tylenol (2) PAF (paroxysmal atrial fibrillation) Code(s): I48.0 - PAROXYSMAL ATRIAL FIBRILLATION Comment: - EKG shows 100% paced rhythm - Hold Xarelto (3) HTN (hypertension) Code(s): I10 - ESSENTIAL (PRIMARY) HYPERTENSION Comment: - Normotensive, SBP 100s - Hold furosemide preoperatively (4) Dementia Code(s): F03.90 - UNSPECIFIED DEMENTIA WITHOUT BEHAVIORAL DISTURBANCE Comment : - Continue Aricept (5) Hyperlipidemia Code(s): E78.5 - HYPERLIPIDEMIA, UNSPECIFIED Comment: - Continue atorvastatin (6) BPH (benign prostatic hyperplasia) Code(s): N40.0 - BENIGN PROSTATIC HYPERPLASIA WITHOUT LOWER URINRY TRACT SYMP Comment: - Ventura placed in ED - Continue Vesicare (7) DVT prophylaxis Comment: - Heparin SQ (8) DNR (do not resuscitate) Comment: Status and Disposition: Inpatient. Anticipate d/c to [facility] when medically stable and cleared by Ortho. According to the Revised Cardiac Risk Index, the patient has a score of 1 point indicating an 6% risk of major cardiac event. The patients METS score is 3.63. EKG personally reviewed shows 100% paced rhythm. Echo shows EF 50-50%, no significant valvular abnormalities, and consistent with previous echo from 2016. Pacer interrogation shows 0 episodes of ventricular arrhythmias and a minimal number of episodes of afib with RVR. He does not require any further cardiac workup. He is a high risk patient due to his age and comorbidities. The patient has been medically optimized for surgery on with Dr. Beavers. Attending: Keturah Leon
[2019-02-04] MEDS: Pantoprazole IV* 40 MG IV SCH (21:32)
[2019-02-04] MEDS: Atorvastatin* 20 MG TAB PO SCH (21:34)
[2019-02-04] MEDS: Melatonin 3 MG TAB PO SCH (21:35)
--- NOTE | 2019-02-04 23:38 | PN ---
Progress Note - Progress Note Date of Service: 02/04/19 Note: CXR - RML or RLL PNA - Concern that patient had aspirated last evening. Now with likely aspiration PNA. Will start Zosyn. Would recommend re-evaluating patient in AM prior to taking to him to the OR to make sure he is clinically improving from a respiratory status
[2019-02-04] MEDS ORDERED: cefTRIAXone(*) 1 GM in NS 0.9% 50 ML* 50 ML IVPB SCH (23:45)
[2019-02-04] MEDS ORDERED: Zosyn per Pharmacy* NOTE FOLLOW UP SCH (23:45)
[2019-02-04] MEDS ORDERED: Azithromycin 500 mg/250 ml NS 500 MG/250 ML BAG IVPB SCH (23:45)
[2019-02-05] MEDS ORDERED: ZOSYN 3.375 GM x ONE DOSE over 30 miuntes IVPB ×2
[2019-02-05] MEDS: NS 0.9% 1000 ML** 1,000 ML IV SCH ×3 (00:15→20:30)
[2019-02-05] MEDS: Acetaminophen TAB* 325 MG PO SCH ×4 (02:36→22:49)
[2019-02-05] MEDS: Piperacillin/Tazobac ADVAN(*) 3.375 GM in NS 0.9% 100 ML* 100 ML IVPB SCH ×5 (04:50→20:33)
[2019-02-05 08:08] LABS: ABS Eosinophils 0.4 10^3/ul (0-0.6); ABS Lymphocytes 1.3 10^3/ul (1.0-4.8); Eosinophil % 2.5 %; Hematocrit 36 % (42-52); Lymphocyte % 7.7 %; Mean Corpuscular HGB Conc 34 g/dL (31-36); Mean Corpuscular Hemoglobin 33 pg (27-31); Mean Corpuscular Volume 98 fL (80-94); Mean Platelet Volume 8.6 fL (7.4-10.4); Platelet Count 113 10^3/uL (150-450); Red Blood Count 3.65 10^6 /uL (4.18-5.48); Red Cell Distribution Width 14 % (10.5-15); White Blood Count 16.8 10^3/uL (3.5-10.8)
[2019-02-05 08:09] LABS: BUN/Creatinine Ratio 28.8 (8-20); Calcium 8.3 mg/dL (8.6-10.3); EGFR African American 122.7 (>60); EGFR Non-African American 101.4 (>60); Potassium 3.9 mmol/L (3.5-5.0)
[2019-02-05 08:17] LABS: INR 1.33 (0.82-1.09)
[2019-02-05] MEDS: CMCS: Solifenacin(NF) 5 MG TAB PO SCH (08:38)
[2019-02-05] MEDS: Senna TAB PO SCH ×2 (08:38→22:49)
[2019-02-05] MEDS: Docusate CAP* 100 MG PO SCH (08:38)
[2019-02-05] MEDS: Cyanocobalamin TAB* 500 MCG PO SCH (08:38)
[2019-02-05] MEDS: Donepezil TAB* 5 MG PO SCH (08:38)
--- NOTE | 2019-02-05 12:26 | PN ---
Subjective Date of Service: 02/05/19 Interval History: Mr. Ellsworth is feeling ok this morning. He offers no complaints. He will open his eye and look at me briefly, but will only answer occasional one word responses to my questions. Patient vomited yesterday night and there was concern for aspiration. CXR was concerning for pneumonia and he was started on Zosyn. No concerns from nursing. Family History: Unchanged from Admission Social History: Unchanged from Admission Past Medical History: Unchanged from Admission Objective Active Medications: Acetaminophen (Tylenol Tab*) 650 mg PO Q6H [facility] Atorvastatin Calcium (Lipitor*) 20 mg PO BEDTIME [facility] Cyanocobalamin (Vitamin B12 Tab*) 1,000 mcg PO DAILY [facility] Docusate Sodium (Colace Cap*) 100 mg PO DAILY [facility] Donepezil HCl (Aricept Tab*) 10 mg PO DAILY [facility] Piperacillin Sod/Tazobactam (Sod 3.375 gm/ Sodium Chloride) 100 mls @ 25 mls/ hr IVPB 0430,1230,2030 [facility] Sodium Chloride (Ns 0.9% 1000 Ml) 1,000 mls @ 100 mls/hr IV PER RATE [facility] Magnesium Hydroxide (Milk Of Magnesia Liq*) 30 ml PO BID PRN [facility]STIP[facility] Melatonin (Melatonin) 6 mg PO BEDTIME [facility] Morphine Sulfate (Morphine Inj (Syringe))*) 2 mg IV Q4H PRN PAIN - MILD Oxycodone/Acetaminophen (Percocet 5/325 Tab*) 1 tab PO Q4H PRN Pain Pantoprazole Sodium (Protonix Iv*) 40 mg IV Q24H [facility] Prochlorperazine Edisylate (Compazine Inj*) 5 mg IV Q6H PRN NAUSEA/VOMITING Senna (Senokot Tab*) 1 tab PO BID [facility] Solifenacin (Vesicare(Nf)) 5 mg PO DAILY [facility] Vital Signs - 8 hr 02/05/19 02/05/19 07:23 08:00 Temperature 98.6 F Pulse Rate 92 Respiratory 16 16 Rate Blood Pressure 131/75 (mmHg) O2 Sat by Pulse 93 Oximetry Oxygen Devices in Use Now: Nasal Cannula - 2L Appearance: Elderly male laying in bed in NAD Eyes: No Scleral Icterus Ears/Nose/Mouth/Throat: Mucous Membranes Moist Neck: NL Appearance and Movements; NL JVP, Trachea Midline Respiratory: Symmetrical Chest Expansion and Respiratory Effort, Clear to Auscultation Cardiovascular: NL Sounds; No Murmurs; No JVD, RRR Abdominal: NL Sounds; No Tenderness; No Distention Extremities: - - +1 pitting BLE Neurological: - - Responds to voice; Oriented to self Lines/Tubes/Other Access: Clean, Dry and Intact Peripheral IV Result Diagrams: 02/05/19 07:43 02/05/19 07:43 Assess/Plan/Problems-Billing Assessment: Mr. Ellsworth is an 88 yo M with PMH of afib, TIA, third degree heart block s/p pacer, HTN, HLD, dementia, and BPH; who presented to the ED after a fall with subsequent left hip pain and was found to have a left hip fracture. - Patient Problems (1) Closed left hip fracture Code(s): S72.002A - FRACTURE OF UNSP PART OF NECK OF LEFT FEMUR, INIT Comment : - Secondary to fall, likely mechanical but unclear due to dementia - Xray shows displaced left femoral neck fracture - Last dose of Xarelto was 02/02/19 AM - Management per Ortho; plan for surgery today - Continue morphine, Percocet, Tylenol (2) Pneumonia Code(s): J18.9 - PNEUMONIA, UNSPECIFIED ORGANISM Comment: - Episode of vomiting and coughing prompting concern for aspiration - CXR showing right basilar opacity - Respiratory status is stable at this point and this should not delay surgery - Speech therapy eval after surgery today - Continue Zosyn (3) Sepsis Comment: - Met criteria with leukocytosis and tachycardia; source is pneumonia - Blood cultures pending, but low suspicion - Plan as above (4) PAF (paroxysmal atrial fibrillation) Code(s): I48.0 - PAROXYSMAL ATRIAL FIBRILLATION Comment: - EKG shows 100% paced rhythm - Hold Xarelto (5) HTN (hypertension) Code(s): I10 - ESSENTIAL (PRIMARY) HYPERTENSION Comment: - Normotensive, SBP 110-130s - Hold furosemide preoperatively (6) Dementia Code(s): F03.90 - UNSPECIFIED DEMENTIA WITHOUT BEHAVIORAL DISTURBANCE Comment : - Continue Aricept (7) Hyperlipidemia Code(s): E78.5 - HYPERLIPIDEMIA, UNSPECIFIED Comment: - Continue atorvastatin (8) BPH (benign prostatic hyperplasia) Code(s): N40.0 - BENIGN PROSTATIC HYPERPLASIA WITHOUT LOWER URINRY TRACT SYMP Comment: - Ventura placed in ED - Continue Vesicare (9) DVT prophylaxis Comment: - SCDs (10) DNR (do not resuscitate) Comment: Status and Disposition: Inpatient. Anticipate d/c to [facility] when medically stable and cleared by Ortho. Attending: Jocelyn Sage
[2019-02-05] MEDS ORDERED: Buffered Lidocaine 1% SYRIN* 1 ML/SYRINGE INTRADERM ONE (15:11)
[2019-02-05] MEDS ORDERED: Bupivacaine 0.5% W/EPI SDV* 30 ML VIAL ONE ×2 (15:20→15:21)
[2019-02-05] MEDS ORDERED: fentaNYL* 50 MCG/ML 2 ML VIAL (100 MCG VIAL) ONE (15:52)
[2019-02-05] MEDS ORDERED: Rocuronium* 10 MG/ML VIAL ONE (16:23)
[2019-02-05] MEDS ORDERED: Naloxone* 0.4 MG/ML 1 ML VIAL IV PRN (17:10)
[2019-02-05] MEDS ORDERED: fentaNYL* 50 MCG/ML 2 ML VIAL (100 MCG VIAL) IV PRN (17:10)
[2019-02-05] MEDS ORDERED: Neostigmine Methylsulfate* 3 MG/3 ML SYRINGE ONE (17:27)
[2019-02-05] MEDS ORDERED: Glycopyrrolate IV* 0.2 MG/ML 1 ML VIAL ONE (17:27)
[2019-02-05] MEDS ORDERED: Propofol* 10 MG/ML 20 ML BTL ONE (18:18)
[2019-02-05] MEDS ORDERED: Acetaminophen IV 1GM/100ML * 100 ML ONE (18:42)
[2019-02-05] MEDS: Pantoprazole IV* 40 MG IV SCH (20:34)
--- NOTE | 2019-02-05 22:18 | OP ---
OPERATIVE REPORT: DATE OF OPERATION: 02/05/19 - Inpatient, room 336-01 DATE OF : 30 SURGEON: Kevin Beavers M.D. CLIENT ADVISOR: BRITTANY Gusman. ANESTHESIOLOGIST: Julián Sweet D.O. ANESTHESIA: General. PRE-OP DIAGNOSIS: Left subcapital hip fracture. POST-OP DIAGNOSIS: Left subcapital hip fracture. OPERATIVE PROCEDURE: Left hip hemiarthroplasty. COMPONENTS USE: [place] size 7, Accolade II, 127-degree angle femoral component ; size 50 mm outer diameter bipolar component; size 28 mm, -4 L-fit femoral head. DRAINS: No drains were used. CONDITION: The patient tolerated the procedure well. BRIEF CLINICAL NOTE: Ede Ellsworth is an 88-year-old male. He is a household ambulator, who slipped and fell, and sustained an injury to his left hip. He was seen at the [facility] and appropriate x-rays were obtained, and was admitted to the medical service due to a rather complex medical history. I was altered that the patient was in the hospital and I spoke to the patient's daughter and due to the fact that the patient is a household ambulator and to avoid morbidity of having the patient become a bed to chair individual and the plan was for him to undergo a hemiarthroplasty of his left hip. He received a favorable medical evaluation and the plan was to take him to the operating room on 02/05/19. I saw the patient in the holding area, placed on my initials on is left hip to indicate the left hip was the correct hip. DESCRIPTION OF PROCEDURE: We then proceeded to the operating room where he was positioned in the correct position, lateral decubitus position, left side up and then the patient was prepped and draped in the usual sterile fashion. Prior to incision, a time-out was called and I again verified that the left hip was the correct hip. I made a modified Bullock incision as my approach to the left hip centering on the posterior third of the greater trochanter. The incision was approximately 9 cm. Skin was incised with #10 blade, followed by second #10 blade for superficial and deep subcu. The tensor fascia nicol was identified and then split longitudinally, then with the Charnley retractor, my administrative personal assistant was able to help me internally rotate the hip to put the short external rotators on stretch. They were then tagged and reflected posteriorly to protect the underlying sciatic nerve. After which, I then proceeded to use corkscrew device and dissect through capsule, tag capsule, reflect it posteriorly and then I was able to remove the femoral head with the corkscrew device. The femoral head was sized on the back table and it appeared that it was a size 50. I then proceeded to revise the femoral neck cut and then proceeded to rasp the proximal femur appropriately. After which, I verified that size 7 trial fit the best and had good purchase and then with a -4 head and a 50 mm outer diameter shell in place, we took the hip through a range of motion. The hip was stable at flexion beyond 90 degrees, adduction across the midline, and internal rotation to 40 degrees, and then the hip began to dislocate. At any rate, we felt that it was extremely stable and at this point we called for the actual prosthesis. The actual prosthesis was then impacted and then the actual femoral head and neck were then placed and tapped on securely, and then I verified again that the my trial reduction, my excellent trial rotation, trial range of motion was again repeated with my actual components. After which, I then irrigated the wound copiously, repaired the short external rotators and capsule through drill holes in the greater trochanter followed by 0 and 2-0 Vicryl for deep and superficial subcu followed by skin jessica to the skin. Standard dressings were applied and the abduction pillow was also applied, and the patient was then awakened, transported off of the operating table to the stretcher and to recovery room, having tolerated the procedure extremely well. [id number]/[facility] #: [id number] ROS
[2019-02-05] MEDS: Atorvastatin* 20 MG TAB PO SCH (22:49)
[2019-02-05] MEDS: Melatonin 3 MG TAB PO SCH (22:49)
[2019-02-05] MEDS ORDERED: Azithromycin IV(*) 250 MG in NS 0.9% 250 ML* 250 ML IVPB SCH (23:45)
[2019-02-06] MEDS: Piperacillin/Tazobac ADVAN(*) 3.375 GM in NS 0.9% 100 ML* 100 ML IVPB SCH ×3 (04:30→20:13)
[2019-02-06] MEDS: Acetaminophen TAB* 325 MG PO SCH ×4 (04:30→22:22)
[2019-02-06] MEDS: NS 0.9% 1000 ML** 1,000 ML IV SCH ×2 (06:31→16:47)
[2019-02-06 07:11] LABS: BUN/Creatinine Ratio 26.8 (8-20); Calcium 7.9 mg/dL (8.6-10.3); EGFR African American 126.7 (>60); EGFR Non-African American 104.7 (>60)
[2019-02-06 07:14] LABS: Hematocrit 31 % (42-52); Hemoglobin 10.3 g/dL (14.0-18.0); Mean Corpuscular HGB Conc 34 g/dL (31-36); Mean Corpuscular Hemoglobin 33 pg (27-31); Mean Corpuscular Volume 99 fL (80-94); Red Blood Count 3.12 10^6 /uL (4.18-5.48); Red Cell Distribution Width 14 % (10.5-15); White Blood Count 14.1 10^3/uL (3.5-10.8)
[2019-02-06 08:15] LABS: ABS Basophils 0.1 10^3/ul (0-0.2); ABS Eosinophils 0.2 10^3/ul (0-0.6); ABS Lymphocytes 0.9 10^3/ul (1.0-4.8); ABS Monocytes 1.1 10^3/ul (0-0.8); ABS Neutrophils 11.8 10^3/ul (1.5-7.7); Eosinophil % 1.4 %; Lymphocyte % 6.6 %; Mean Platelet Volume 9.1 fL (7.4-10.4); Platelet Count 99 10^3/uL (150-450)
[2019-02-06] MEDS: CMCS: Solifenacin(NF) 5 MG TAB PO SCH (10:22)
[2019-02-06] MEDS: Donepezil TAB* 5 MG PO SCH (10:22)
[2019-02-06] MEDS: Rivaroxaban TAB(*) 10 MG PO SCH (10:22)
[2019-02-06] MEDS: Docusate CAP* 100 MG PO SCH (10:22)
[2019-02-06] MEDS: Cyanocobalamin TAB* 500 MCG PO SCH (10:22)
[2019-02-06] MEDS: Senna TAB PO SCH ×2 (10:22→22:16)
--- NOTE | 2019-02-06 12:03 | PN ---
Progress Note - Progress Note Date of Service: 02/06/19 SOAP: Subjective: pod #1 left hip hemiarthroplasty . daughter in room. states he is doing well. when patient asked what his pain level is he looks at the chart on the wall and say's 2. [] Objective: vs stable. H/H 10.12/28. left hip dressing CDI . moving toes and ankle with no complaints. abduction pillow in place . [] Assessment: s/p left hip hemiarthroplasty. [] Plan: physical therapy to start. weight bear as tolerated with the walker. America Quinones, PAC []
[2019-02-06] MEDS ORDERED: Metoclopramide IV* 5 MG/ML 2 ML VIAL IV PRN (12:59)
--- NOTE | 2019-02-06 13:09 | PN ---
Subjective Date of Service: 02/06/19 Interval History: Mr. Ellsworth is more alert today and his daughter feels he looks more like himself. He was awake on my arrival and reported 2/10 hip pain. He was not able to offer any further subjective data. Daughter feels he is comfortable. He has been getting hiccups after every meal which last for at least an hour after. No concerns from nursing. Family History: Unchanged from Admission Social History: Unchanged from Admission Past Medical History: Unchanged from Admission Objective Active Medications: Acetaminophen (Tylenol Tab*) 650 mg PO Q6H [facility] Atorvastatin Calcium (Lipitor*) 20 mg PO BEDTIME [facility] Cyanocobalamin (Vitamin B12 Tab*) 1,000 mcg PO DAILY [facility] Docusate Sodium (Colace Cap*) 100 mg PO DAILY [facility] Donepezil HCl (Aricept Tab*) 10 mg PO DAILY [facility] Piperacillin Sod/Tazobactam (Sod 3.375 gm/ Sodium Chloride) 100 mls @ 25 mls/ hr IVPB 0430,1230,2030 [facility] Sodium Chloride (Ns 0.9% 1000 Ml) 1,000 mls @ 100 mls/hr IV PER RATE [facility] Magnesium Hydroxide (Milk Of Magnesia Liq*) 30 ml PO BID PRN CONSTIPATION Melatonin (Melatonin) 6 mg PO BEDTIME [facility] Metoclopramide HCl (Reglan Iv*) 5 mg IV Q6H PRN Hiccups Morphine Sulfate (Morphine Inj (Syringe))*) 2 mg IV Q4H PRN PAIN - MILD Oxycodone/Acetaminophen (Percocet 5/325 Tab*) 1 tab PO Q4H PRN Pain Pantoprazole Sodium (Protonix Iv*) 40 mg IV Q24H [facility] Prochlorperazine Edisylate (Compazine Inj*) 5 mg IV Q6H PRN NAUSEA/VOMITING Rivaroxaban (Xarelto(*)) 10 mg PO DAILY [facility] Senna (Senokot Tab*) 1 tab PO BID [facility] Solifenacin (Vesicare(Nf)) 5 mg PO DAILY [facility] Vital Signs - 8 hr 02/06/19 02/06/19 02/06/19 07:27 11:49 12:09 Temperature 98.8 F Pulse Rate 59 59 Respiratory 18 18 Rate Blood Pressure 102/49 105/42 (mmHg) O2 Sat by Pulse 94 91 93 Oximetry Oxygen Devices in Use Now: Nasal Cannula - 2L Appearance: Elderly male sitting in chair in NAD Eyes: No Scleral Icterus Ears/Nose/Mouth/Throat: Mucous Membranes Moist Neck: NL Appearance and Movements; NL JVP, Trachea Midline Respiratory: Symmetrical Chest Expansion and Respiratory Effort, Clear to Auscultation Cardiovascular: NL Sounds; No Murmurs; No JVD, RRR Abdominal: NL Sounds; No Tenderness; No Distention Extremities: No Edema Neurological: - - Alert, oriented to self Lines/Tubes/Other Access: Clean, Dry and Intact Peripheral IV Nutrition: Taking PO's Result Diagrams: 02/06/19 06:42 02/06/19 06:42 Assess/Plan/Problems-Billing Assessment: Mr. Ellsworth is an 88 yo M with PMH of afib, TIA, third degree heart block s/p pacer, HTN, HLD, dementia, and BPH; who presented to the ED after a fall with subsequent left hip pain and was found to have a left hip fracture. - Patient Problems (1) Closed left hip fracture Code(s): S72.002A - FRACTURE OF UNSP PART OF NECK OF LEFT FEMUR, INIT Comment : - POD #1 - Secondary to fall, likely mechanical but unclear due to dementia - Xray shows displaced left femoral neck fracture - Management per Ortho - Continue morphine, Percocet, Tylenol (2) Pneumonia Code(s): J18.9 - PNEUMONIA, UNSPECIFIED ORGANISM Comment: - Episode of vomiting and coughing prompting concern for aspiration - CXR showing right basilar opacity - Speech therapy eval - Continue Zosyn (3) Sepsis Comment: - Met criteria with leukocytosis and tachycardia; source is pneumonia - Blood cultures pending, but low suspicion - Plan as above (4) PAF (paroxysmal atrial fibrillation) Code(s): I48.0 - PAROXYSMAL ATRIAL FIBRILLATION Comment: - EKG shows 100% paced rhythm - Continue Xarelto (5) HTN (hypertension) Code(s): I10 - ESSENTIAL (PRIMARY) HYPERTENSION Comment: - Normotensive, SBP 100-110s - Hold furosemide (6) Dementia Code(s): F03.90 - UNSPECIFIED DEMENTIA WITHOUT BEHAVIORAL DISTURBANCE Comment : - Continue Aricept (7) Hyperlipidemia Code(s): E78.5 - HYPERLIPIDEMIA, UNSPECIFIED Comment: - Continue atorvastatin (8) BPH (benign prostatic hyperplasia) Code(s): N40.0 - BENIGN PROSTATIC HYPERPLASIA WITHOUT LOWER URINRY TRACT SYMP Comment: - Ventura placed in ED - Continue Vesicare (9) DVT prophylaxis Comment: - Xarelto (10) DNR (do not resuscitate) Comment: Status and Disposition: Inpatient. Anticipate d/c to [facility] when medically stable and cleared by Ortho. Attending: Deejay Osorio
[2019-02-06] MEDS ORDERED: NS 0.9% 500 ML* 500 ML IV ONE (14:13)
[2019-02-06] MEDS: Pantoprazole IV* 40 MG IV SCH (19:43)
[2019-02-06] MEDS: Melatonin 3 MG TAB PO SCH (22:16)
[2019-02-06] MEDS: Atorvastatin* 20 MG TAB PO SCH (22:23)
[2019-02-07] MEDS: NS 0.9% 1000 ML** 1,000 ML IV SCH (04:28)
[2019-02-07] MEDS: Piperacillin/Tazobac ADVAN(*) 3.375 GM in NS 0.9% 100 ML* 100 ML IVPB SCH ×3 (04:28→20:46)
[2019-02-07] MEDS: Acetaminophen TAB* 325 MG PO SCH ×4 (04:35→23:00)
[2019-02-07 07:05] LABS: ABS Basophils 0.1 10^3/ul (0-0.2); ABS Lymphocytes 1.4 10^3/ul (1.0-4.8); ABS Monocytes 1.4 10^3/ul (0-0.8); ABS Neutrophils 12.1 10^3/ul (1.5-7.7); Eosinophil % 0.3 %; Hematocrit 29 % (42-52); Hemoglobin 9.7 g/dL (14.0-18.0); Lymphocyte % 9.3 %; Mean Corpuscular HGB Conc 33 g/dL (31-36); Mean Corpuscular Hemoglobin 33 pg (27-31); Mean Corpuscular Volume 99 fL (80-94); Mean Platelet Volume 9.2 fL (7.4-10.4); Platelet Count 117 10^3/uL (150-450); Red Blood Count 2.95 10^6 /uL (4.18-5.48); Red Cell Distribution Width 14 % (10.5-15); White Blood Count 15.1 10^3/uL (3.5-10.8)
--- NOTE | 2019-02-07 08:11 | PN ---
Subjective Date of Service: 02/07/19 Interval History: . Patient is sleeping on arrival; awakes to voice; slightly confused noted dementia. Denies pain. Family History: Unchanged from Admission Social History: Unchanged from Admission Past Medical History: Unchanged from Admission Objective Active Medications: Acetaminophen (Tylenol Tab*) 650 mg PO Q6H [facility] Last Admin: 02/07/19 04:35 Dose: Not Given Atorvastatin Calcium (Lipitor*) 20 mg PO BEDTIME [facility] Last Admin: 02/06/19 22:23 Dose: Not Given Cyanocobalamin (Vitamin B12 Tab*) 1,000 mcg PO DAILY [facility] Last Admin: 02/06/19 10:22 Dose: 1,000 mcg Docusate Sodium (Colace Cap*) 100 mg PO DAILY [facility] Last Admin: 02/06/19 10:22 Dose: 100 mg Donepezil HCl (Aricept Tab*) 10 mg PO DAILY [facility] Last Admin: 02/06/19 10:22 Dose: 10 mg Piperacillin Sod/Tazobactam (Sod 3.375 gm/ Sodium Chloride) 100 mls @ 25 mls/ hr IVPB 0430,1230,2030 [facility] Last Admin: 02/07/19 04:28 Dose: 25 mls/hr Sodium Chloride (Ns 0.9% 1000 Ml) 1,000 mls @ 100 mls/hr IV PER RATE [facility] Last Admin: 02/07/19 04:28 Dose: 100 mls/hr Magnesium Hydroxide (Milk Of Magnshayne Liq*) 30 ml PO BID PRN PRN Reason: CONSTIPATION Melatonin (Melatonin) 6 mg PO BEDTIME [facility] Last Admin: 02/06/19 22:16 Dose: 6 mg Metoclopramide HCl (Reglan Iv*) 5 mg IV Q6H PRN PRN Reason: Hiccups Last Admin: 02/06/19 22:13 Dose: 5 mg Morphine Sulfate (Morphine Inj (Syringe))*) 2 mg IV Q4H PRN PRN Reason: PAIN - MILD Oxycodone/Acetaminophen (Percocet 5/325 Tab*) 1 tab PO Q4H PRN PRN Reason: Pain Last Admin: 02/07/19 04:30 Dose: 1 tab Pantoprazole Sodium (Protonix Iv*) 40 mg IV Q24H [facility] Last Admin: 02/06/19 19:43 Dose: 40 mg Pharmacy Consult (Zosyn Per Pharmacy*) 1 note FOLLOW UP .ZOSYN PER PHARMACY [facility] Prochlorperazine Edisylate (Compazine Inj*) 5 mg IV Q6H PRN PRN Reason: NAUSEA/VOMITING Last Admin: 02/04/19 19:41 Dose: 5 mg Rivaroxaban (Xarelto(*)) 10 mg PO DAILY [facility] Last Admin: 02/06/19 10:22 Dose: 10 mg Senna (Senokot Tab*) 1 tab PO BID [facility] Last Admin: 02/06/19 22:16 Dose: 1 tab Solifenacin (Vesicare(Nf)) 5 mg PO DAILY [facility] Last Admin: 02/06/19 10:22 Dose: 5 mg Vital Signs - 8 hr 02/07/19 02/07/19 04:30 06:22 Temperature 99.3 F Pulse Rate 72 Respiratory 16 18 Rate Blood Pressure 112/56 (mmHg) O2 Sat by Pulse 94 Oximetry Oxygen Devices in Use Now: None Appearance: elderly male laying in bed resting no Acute Distress Eyes: No Scleral Icterus, PERRLA Ears/Nose/Mouth/Throat: NL Teeth, Lips, Gums, Mucous Membranes Moist Neck: NL Appearance and Movements; NL JVP Respiratory: Symmetrical Chest Expansion and Respiratory Effort, Clear to Auscultation Cardiovascular: NL Sounds; No Murmurs; No JVD, RRR, No Edema Abdominal: NL Sounds; No Tenderness; No Distention Extremities: No Edema, No Clubbing, Cyanosis, - - w/ hip pillow in place Skin: No Rash or Ulcers, No Nodules or Sclerosis Neurological: Alert and Oriented x 3, NL Muscle Strength and Tone Lines/Tubes/Other Access: Clean, Dry and Intact Peripheral IV Nutrition: Taking PO's Result Diagrams: 02/07/19 06:34 02/06/19 06:42 Microbiology and Other Data: Microbiology 02/04/19 21:15 Aerobic Blood Culture - Preliminary Blood Venous No Growth Day 2 Anaerobic Blood Culture - Preliminary No Growth Day 2 02/05/19 02:25 Legionella Urinary Antigen - Final Urine Negative Legionella Antigen Streptococcus pneumoniae Ag Screen - Final Negative S. pneumo Antigen 02/03/19 08:25 Nasal Screen MRSA (PCR) - Final Nasal Mrsa Not Detected Assess/Plan/Problems-Billing Assessment: Mr. Ellsworth is an 88 yo M with PMH of afib, TIA, third degree heart block s/p pacer, HTN, HLD, dementia, and BPH; who presented to the ED after a fall with subsequent left hip pain and was found to have a left hip fracture. - Patient Problems (1) Closed left hip fracture Comment: - POD #2 - Secondary to fall, likely mechanical but unclear due to dementia - Xray shows displaced left femoral neck fracture - HH stable - continue to check daily - Management per Ortho - Continue morphine, Percocet, Tylenol (2) Pneumonia Comment: - Episode of vomiting and coughing prompting concern for aspiration - CXR showing right basilar opacity - 2L NC - stable, improving - Speech therapy eval - thin liquids ok, mechanical ground texture - Continue Zosyn (3) Sepsis Comment: - Resolved; source is pneumonia - Blood cultures NTD - Plan as above (4) BPH (benign prostatic hyperplasia) Comment: - Ventura placed in ED - Continue Vesicare (5) Dementia Comment: - Continue Aricept (6) Hyperlipidemia Comment: - Continue atorvastatin (7) HTN (hypertension) Comment: - Normotensive, SBP 100-110s - Hold furosemide (8) PAF (paroxysmal atrial fibrillation) Comment: - EKG shows 100% paced rhythm - Continue Xarelto (9) 3 degree heart block s/p pacer (10) DNR (do not resuscitate) Comment: (11) DVT prophylaxis Comment: - Xarelto Status and Disposition: Inpatient. Anticipate d/c to [facility] when medically stable and cleared by Ortho.
[2019-02-07] MEDS: Senna TAB PO SCH ×2 (09:47→23:00)
[2019-02-07] MEDS: Cyanocobalamin TAB* 500 MCG PO SCH (09:47)
[2019-02-07] MEDS: Rivaroxaban TAB(*) 10 MG PO SCH (09:47)
[2019-02-07] MEDS: Donepezil TAB* 5 MG PO SCH (09:47)
[2019-02-07] MEDS: CMCS: Solifenacin(NF) 5 MG TAB PO SCH (09:47)
[2019-02-07] MEDS: Docusate CAP* 100 MG PO SCH (10:47)
[2019-02-07] MEDS: Pantoprazole IV* 40 MG IV SCH (20:48)
[2019-02-07] MEDS: Atorvastatin* 20 MG TAB PO SCH (23:00)
[2019-02-07] MEDS: Melatonin 3 MG TAB PO SCH (23:00)
[2019-02-08] MEDS: Acetaminophen TAB* 325 MG PO SCH ×4 (03:47→22:58)
[2019-02-08] MEDS: Piperacillin/Tazobac ADVAN(*) 3.375 GM in NS 0.9% 100 ML* 100 ML IVPB SCH ×3 (03:51→20:10)
[2019-02-08 05:40] LABS: ABS Lymphocytes 1.5 10^3/ul (1.0-4.8); ABS Monocytes 1.2 10^3/ul (0-0.8); Eosinophil % 0.3 %; Lymphocyte % 10.2 %
[2019-02-08 05:58] LABS: Hematocrit 29 % (42-52); Hemoglobin 9.6 g/dL (14.0-18.0); Mean Corpuscular HGB Conc 33 g/dL (31-36); Mean Corpuscular Hemoglobin 33 pg (27-31); Mean Corpuscular Volume 99 fL (80-94); Mean Platelet Volume 8.9 fL (7.4-10.4); Platelet Count 150 10^3/uL (150-450); Red Blood Count 2.92 10^6 /uL (4.18-5.48); Red Cell Distribution Width 14 % (10.5-15)
[2019-02-08 06:00] LABS: BUN/Creatinine Ratio 43.9 (8-20); EGFR African American 137.8 (>60); EGFR Non-African American 113.9 (>60); Potassium 3.5 mmol/L (3.5-5.0)
[2019-02-08] MEDS ORDERED: Furosemide IV* 10 MG/ML 2 ML VIAL (20 MG) IV ONE (08:19)
--- NOTE | 2019-02-08 08:29 | PN ---
Subjective Date of Service: 02/08/19 Interval History: Per nursing staff in the night patient yelled out several times. he did open his eyes this am but since has continued to be very lethargic and is very difficult to arouse. 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 Family History: Unchanged from Admission Social History: Unchanged from Admission Past Medical History: Unchanged from Admission Objective Active Medications: Acetaminophen (Tylenol Tab*) 650 mg PO Q6H [facility] Last Admin: 02/08/19 03:47 Dose: 650 mg Atorvastatin Calcium (Lipitor*) 20 mg PO BEDTIME [facility] Last Admin: 02/07/19 23:00 Dose: Not Given Cyanocobalamin (Vitamin B12 Tab*) 1,000 mcg PO DAILY [facility] Last Admin: 02/07/19 09:47 Dose: 1,000 mcg Docusate Sodium (Colace Cap*) 100 mg PO DAILY [facility] Last Admin: 02/07/19 10:47 Dose: Not Given Donepezil HCl (Aricept Tab*) 10 mg PO DAILY [facility] Last Admin: 02/07/19 09:47 Dose: 10 mg Piperacillin Sod/Tazobactam (Sod 3.375 gm/ Sodium Chloride) 100 mls @ 25 mls/ hr IVPB 0430,1230,2030 [facility] Last Admin: 02/08/19 03:51 Dose: 25 mls/hr Magnesium Hydroxide (Milk Of Magnesia Liq*) 30 ml PO BID PRN PRN Reason: CONSTIPATION Melatonin (Melatonin) 6 mg PO BEDTIME [facility] Last Admin: 02/07/19 23:00 Dose: Not Given Metoclopramide HCl (Reglan Iv*) 5 mg IV Q6H PRN PRN Reason: Hiccups Last Admin: 02/06/19 22:13 Dose: 5 mg Pantoprazole Sodium (Protonix Iv*) 40 mg IV Q24H [facility] Last Admin: 02/07/19 20:48 Dose: 40 mg Pharmacy Consult (Zosyn Per Pharmacy*) 1 note FOLLOW UP .ZOSYN PER PHARMACY [facility] Prochlorperazine Edisylate (Compazine Inj*) 5 mg IV Q6H PRN PRN Reason: NAUSEA/VOMITING Last Admin: 02/04/19 19:41 Dose: 5 mg Senna (Senokot Tab*) 1 tab PO BID [facility] Last Admin: 02/07/19 23:00 Dose: Not Given Solifenacin (Vesicare(Nf)) 5 mg PO DAILY [facility] Last Admin: 02/07/19 09:47 Dose: 5 mg Vital Signs - 8 hr 02/08/19 02/08/19 02/08/19 00:18 00:28 03:35 Temperature 98.6 F 98.9 F Pulse Rate 59 108 Respiratory 16 Rate Blood Pressure 136/61 134/73 (mmHg) O2 Sat by Pulse 94 94 91 Oximetry 02/08/19 02/08/19 02/08/19 04:57 07:27 08:02 Temperature 99.1 F Pulse Rate 65 95 Respiratory 18 Rate Blood Pressure 130/74 (mmHg) O2 Sat by Pulse 94 89 99 Oximetry Oxygen Devices in Use Now: Nasal Cannula Appearance: elderly male laying in bed letharigic - moans and yells out to sternal rub - will not open eyes Eyes: PERRLA Ears/Nose/Mouth/Throat: Mucous Membranes Moist Respiratory: Symmetrical Chest Expansion and Respiratory Effort, - - RLL crackles Cardiovascular: NL Sounds; No Murmurs; No JVD, - - 1-2+ LE edema Abdominal: NL Sounds; No Tenderness; No Distention Extremities: No Clubbing, Cyanosis Neurological: - - lethargic; yells out; did follow the command gripping both hands and squeezing with lots of prompting - risk management internship are equal; possible right facial droop. pupils equal Lines/Tubes/Other Access: Clean, Dry and Intact Peripheral IV Result Diagrams: 02/08/19 05:03 02/08/19 05:03 Microbiology and Other Data: Microbiology 02/04/19 21:15 Aerobic Blood Culture - Preliminary Blood Venous No Growth Day 2 Anaerobic Blood Culture - Preliminary No Growth Day 2 02/05/19 02:25 Legionella Urinary Antigen - Final Urine Negative Legionella Antigen Streptococcus pneumoniae Ag Screen - Final Negative S. pneumo Antigen 02/03/19 08:25 Nasal Screen MRSA (PCR) - Final Nasal Mrsa Not Detected Assess/Plan/Problems-Billing Assessment: Mr. Ellsworth is an 88 yo M with PMH of afib, TIA, third degree heart block s/p pacer, HTN, HLD, dementia, and BPH; who presented to the ED after a fall with subsequent left hip pain and was found to have a left hip fracture, now with AMS changes since 02/07 - - Patient Problems (1) Change in mental status Comment: - Patient became lethargic on 02/07 - unclear etiology. He had 1 percocet 02/07 at 4 am otherwise no opioids. 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 Possible Right sided facial droop. Long conversation yesterday and today with daughter who wants him to be comfort care and refuses any imaging, or testing such as an ABG. It is unclear at this point if the patient will improve and the plan will be to wait and watch while providing comfort measures. Holding xarelto. We decided to continue the antibiotics for pneumonia and if there is no improvement tomorrow DC abx Dr. Owens has been updated (2) Closed left hip fracture Comment: - POD #3 s/p left hip hemiarthroplasty by Dr. Owens - Secondary to fall, likely mechanical but unclear due to dementia - Xray showed displaced left femoral neck fracture - HH stable - Management per Ortho - Continue morphine, Percocet, Tylenol - PT/OT if patient tolerates and participates (3) Pneumonia Comment: - Episode of vomiting and coughing prompting concern for aspiration 02/05 - CXR showing right basilar opacity - 2L NC - - Speech therapy eval - thin liquids ok, mechanical ground texture - Continue Zosyn (4) Sepsis Comment: - Source suspected is pneumonia - was resolved - however now with AMS screens positive for sepsis. Again per HCP (daughter) she does not want agressive tx but agrees to continuing abx. This should be re-evaluated if patient continues to decline. - Blood cultures NTD (5) BPH (benign prostatic hyperplasia) Comment: - Audrey HUDSON yesterday - home med Vesicare on hold due to AMS (6) Dementia Comment: - Home Aricept on hold due to AMS (7) HTN (hypertension) Comment: - Normotensive, SBP 130s - Home dose furosemide is 20 mg q every other day - has been on hold. Will give one time dose of 20 mg today due to noted crackles in bases and LE edema (8) PAF (paroxysmal atrial fibrillation) Comment: - EKG shows 100% paced rhythm - Hold Xarelto in the setting of AMS changes (9) 3 degree heart block s/p pacer (10) DNR (do not resuscitate) Comment: - DNR/DNI - comfort care - [facility] has been updated. Daughter does not want any invasive measures. (11) DVT prophylaxis Comment: - Hold Xarelto Status and Disposition: Inpatient. Discharge plan is unclear; saturday patient became more unresponsive ; Long discussion with daughter who wants him to be comfort care. If continues to decline consider Hospice consult -
[2019-02-08] MEDS: CMCS: Solifenacin(NF) 5 MG TAB PO SCH (10:52)
[2019-02-08] MEDS: Docusate LIQ* 100 MG/10 ML UDC PO SCH (10:52)
[2019-02-08] MEDS: Docusate CAP* 100 MG PO SCH (11:00)
[2019-02-08] MEDS ORDERED: Metoclopramide IV* 5 MG/ML 2 ML VIAL IV PRN (17:06)
[2019-02-09] MEDS: Acetaminophen TAB* 325 MG PO SCH ×4 (04:10→23:12)
[2019-02-09] MEDS: Piperacillin/Tazobac ADVAN(*) 3.375 GM in NS 0.9% 100 ML* 100 ML IVPB SCH ×3 (04:17→20:26)
[2019-02-09] MEDS: CMCS: Solifenacin(NF) 5 MG TAB PO SCH (08:43)
[2019-02-09] MEDS: Docusate LIQ* 100 MG/10 ML UDC PO SCH (08:43)
--- NOTE | 2019-02-09 18:41 | PN ---
Subjective Date of Service: 02/09/19 Interval History: VS: WNL Pt is awake and responds to questions today. Has L facial droop, which daughter and family member cannot say is new or not. He states that he has no complaints. Family History: Unchanged from Admission Social History: Unchanged from Admission Past Medical History: Unchanged from Admission Objective Active Medications: Acetaminophen (Tylenol Tab*) 650 mg PO Q6H [facility] Docusate Sodium (Colace Liq*) 100 mg PO 0900 [facility] Piperacillin Sod/Tazobactam (Sod 3.375 gm/ Sodium Chloride) 100 mls @ 25 mls/ hr IVPB 0430,1230,2030 [facility] Magnesium Hydroxide (Milk Of Magnesia Liq*) 30 ml PO BID PRN Metoclopramide HCl (Reglan Iv*) 5 mg IV Q6H PRN Pharmacy Consult (Zosyn Per Pharmacy*) 1 note FOLLOW UP .ZOSYN PER PHARMACY [facility] Solifenacin (Vesicare(Nf)) 5 mg PO DAILY [facility] Vital Signs: Temp Pulse Resp BP Pulse Ox 97.7 F 62 18 125/54 96 02/09/19 16:03 02/09/19 15:58 02/09/19 15:58 02/09/19 15:58 02/09/19 15:58 Oxygen Devices in Use Now: Nasal Cannula Appearance: Pt is laying in bed sleeping. He wakes easily and responds to questions. He is in no acute distress. Eyes: No Scleral Icterus Neck: Trachea Midline Respiratory: Symmetrical Chest Expansion and Respiratory Effort, Clear to Auscultation Cardiovascular: NL Sounds; No Murmurs; No JVD, RRR, - - B/l LE edema 2+ Abdominal: NL Sounds; No Tenderness; No Distention, No Hepatosplenomegaly Extremities: No Clubbing, Cyanosis Result Diagrams: 02/08/19 05:03 02/08/19 05:03 Microbiology and Other Data: Microbiology 02/04/19 21:15 Aerobic Blood Culture - Preliminary Blood Venous No Growth Day 2 Anaerobic Blood Culture - Preliminary No Growth Day 2 02/05/19 02:25 Legionella Urinary Antigen - Final Urine Negative Legionella Antigen Streptococcus pneumoniae Ag Screen - Final Negative S. pneumo Antigen 02/03/19 08:25 Nasal Screen MRSA (PCR) - Final Nasal Mrsa Not Detected Assess/Plan/Problems-Billing Assessment: Mr. Ellsworth is an 88 yo M with PMH of afib, TIA, third degree heart block s/p pacer, HTN, HLD, dementia, and BPH; who presented to the ED after a fall with subsequent left hip pain and was found to have a left hip fracture, now with AMS changes since 02/07. - Patient Problems (1) Change in mental status Comment: - Patient became lethargic on 02/07 - unclear etiology. He had 1 percocet 02/07 at 4 am otherwise no opioids. 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 Possible left sided facial droop. Long conversation with daughter who wants him to be comfort care and refuses any imaging, or testing such as an ABG. It is unclear at this point if the patient will improve and the plan will be to wait and watch while providing comfort measures. Holding xarelto. We decided to continue the antibiotics for pneumonia. Dr. Owens has been updated (2) Closed left hip fracture Comment: - POD #4 s/p left hip hemiarthroplasty by Dr. Owens - Secondary to fall, likely mechanical but unclear due to dementia - Xray showed displaced left femoral neck fracture - HH stable - Management per Ortho - Continue morphine, Percocet, Tylenol - PT/OT if patient tolerates and participates (3) Pneumonia Comment: - Episode of vomiting and coughing prompting concern for aspiration 02/05 - CXR showing right basilar opacity - 2L NC - Speech therapy eval - thin liquids ok, mechanical ground texture - Continue Zosyn (4) Sepsis Comment: - Source suspected is pneumonia - was resolved - however now with AMS screens positive for sepsis. Again per HCP (daughter) she does not want agressive tx but agrees to continuing abx. This should be re-evaluated if patient continues to decline. - Blood cultures NTD (5) DVT prophylaxis Comment: - Hold Xarelto (6) DNR (do not resuscitate) Comment: - DNR/DNI - comfort care - [facility] has been updated. Daughter does not want any invasive measures. Status and Disposition: Inpatient. Discharge plan is unclear; saturday patient became more unresponsive ; Long discussion with daughter who wants him to be comfort care. Hospice consulted.
--- NOTE | 2019-02-09 20:37 | CONSULT ---
Palliative / Hospice Consult Ordering Provider: Treasure Quiroz - PCP-Nancie Morgan Reason: Discussion about hospice - Subjective Code Status: DNR Advance Directives Location: In Chart [facility] Part A Completed: Yes - on chart [facility] Part E Completed:: Yes - on chart - History or Present Illness History or Present Illness: 88 male with moderate dementia who resides at [facility] had an unwitnessed fall. Pt was brought to the hospital and found to have a L displaced femoral neck fracture. Day prior to surgery pt vomited and developed aspiration pneumonia and was placed on antibiotics. Hip was repaired without incident and pt was alert and talking the following day. Since then pt has become more somnolent. At the time it was felt pt may have had a stroke. Family opted for comfort care. PMH is significant for afib on anticoagulation, HTN, hperlipidemia , TIA, pacer for 3rd degree heart block and BPH. Pt is a non smoker, no etoh, no drugs with a daughter who is his HCP Kristy Pace [phone]. Ekg- paced, CXR #1 neg, ECHO EF 50-55%, L knee neg, CXR #2 atelectasis right base, H /H 9.6/29, BUN/Cr 29/.66, egfr 113.9, tprot 7.1 & alb 3.5 Lab Values: Abnormal Lab Results 02/06/19 06:42 Hem Pathologist Commnt Laboratory Last Values WBC 15.0 10^3/uL (3.5-10.8) H 02/08/19 05:03 RBC 2.92 10^6 /uL (4.18-5.48) L 02/08/19 05:03 Hgb 9.6 g/dL (14.0-18.0) L 02/08/19 05:03 Hct 29 % (42-52) L 02/08/19 05:03 MCV 99 fL (80-94) H 02/08/19 05:03 MCH 33 pg (27-31) H 02/08/19 05:03 MCHC 33 g/dL (31-36) 02/08/19 05:03 RDW 14 % (10.5-15) 02/08/19 05:03 Plt Count 150 10^3/uL (150-450) 02/08/19 05:03 MPV 8.9 fL (7.4-10.4) 02/08/19 05:03 Neut % (Auto) 81.0 % 02/08/19 05:03 Lymph % (Auto) 10.2 % 02/08/19 05:03 [place] % (Auto) 8.2 % 02/08/19 05:03 Eos % (Auto) 0.3 % 02/08/19 05:03 Baso % (Auto) 0.3 % 02/08/19 05:03 Absolute Neuts (auto) 12.0 10^3/ul (1.5-7.7) H 02/08/19 05:03 Absolute Lymphs (auto) 1.5 10^3/ul (1.0-4.8) 02/08/19 05:03 Absolute Monos (auto) 1.2 10^3/ul (0-0.8) H 02/08/19 05:03 Absolute Eos (auto) 0.0 10^3/ul (0-0.6) 02/08/19 05:03 Absolute Basos (auto) 0.0 10^3/ul (0-0.2) 02/08/19 05:03 Absolute Nucleated RBC 0.0 10^3/ul 02/08/19 05:03 Nucleated RBC % 0.0 02/08/19 05:03 Hem Pathologist Commnt 02/06/19 06:42 INR (Anticoag Therapy) 1.33 (0.82-1.09) H 02/05/19 07:43 APTT 35.7 seconds (26.0-36.3) 02/03/19 02:00 Sodium 142 mmol/L (135-145) 02/08/19 05:03 Potassium 3.5 mmol/L (3.5-5.0) 02/08/19 05:03 Chloride 114 mmol/L (101-111) H 02/08/19 05:03 Carbon Dioxide 21 mmol/L (22-32) L 02/08/19 05:03 Anion Gap 7 mmol/L (2-11) 02/08/19 05:03 BUN 29 mg/dL (6-24) H 02/08/19 05:03 Creatinine 0.66 mg/dL (0.67-1.17) L 02/08/19 05:03 Est GFR ( Amer) 137.8 (>60) 02/08/19 05:03 Est GFR (Non-Af Amer) 113.9 (>60) 02/08/19 05:03 BUN/Creatinine Ratio 43.9 (8-20) H 02/08/19 05:03 Glucose 132 mg/dL (70-100) H 02/08/19 05:03 Calcium 8.0 mg/dL (8.6-10.3) L 02/08/19 05:03 Magnesium 2.0 mg/dL (1.9-2.7) 02/05/19 07:43 Total Bilirubin 0.60 mg/dL (0.2-1.0) 02/03/19 02:00 AST 17 U/L (13-39) 02/03/19 02:00 ALT 14 U/L (7-52) 02/03/19 02:00 Alkaline Phosphatase 105 U/L (34-104) H 02/03/19 02:00 Troponin I 0.01 ng/mL (<0.04) 02/03/19 02:00 Total Protein 7.1 g/dL (6.4-8.9) 02/03/19 02:00 Albumin 3.5 g/dL (3.2-5.2) 02/03/19 02:00 Globulin 3.6 g/dL (2-4) 02/03/19 02:00 Albumin/Globulin Ratio 1.0 (1-3) 02/03/19 02:00 Urine Color [place] 02/03/19 06:50 Urine Appearance Cloudy 02/03/19 06:50 Urine pH 5.0 (5-9) 02/03/19 06:50 Ur Specific [place] 1.021 (1.010-1.030) 02/03/19 06:50 Urine Protein 2+(100 mg/dl) (Negative) A 02/03/19 06:50 Urine Ketones Trace (Negative) A 02/03/19 06:50 Urine Blood 2+ (Negative) A 02/03/19 06:50 Urine Nitrate Negative (Negative) 02/03/19 06:50 Urine Bilirubin Negative (Negative) 02/03/19 06:50 Urine Urobilinogen Negative (Negative) 02/03/19 06:50 Ur Leukocyte Esterase Negative (Negative) 02/03/19 06:50 Urine WBC (Auto) Absent (Absent) 02/03/19 06:50 Urine RBC (Auto) 3+(>10/hpf) (Absent) A 02/03/19 06:50 Ur Squamous Epith Cells Present (Absent) A 02/03/19 06:50 Urine Bacteria Absent (Absent) 02/03/19 06:50 Urine Glucose Negative (Negative) 02/03/19 06:50 Urine Ascorbic Acid * (Negative) A 02/03/19 06:50 Blood Type O Positive 02/03/19 02:00 Antibody Screen Negative 02/03/19 02:00 Crossmatch See Detail 02/03/19 02:00 - Objective Active Medications: Acetaminophen (Tylenol Tab*) 650 mg PO Q6H [facility] Last Admin: 02/09/19 16:30 Dose: 650 mg Docusate Sodium (Colace Liq*) 100 mg PO 0900 [facility] Last Admin: 02/09/19 08:43 Dose: 100 mg Piperacillin Sod/Tazobactam (Sod 3.375 gm/ Sodium Chloride) 100 mls @ 25 mls/ hr IVPB 0430,1230,2030 [facility] Last Admin: 02/09/19 20:26 Dose: 25 mls/hr Magnesium Hydroxide (Milk Of Magnesia Liq*) 30 ml PO BID PRN PRN Reason: CONSTIPATION Metoclopramide HCl (Reglan Iv*) 5 mg IV Q6H PRN PRN Reason: NAUSEA/VOMITING Last Admin: 02/09/19 01:16 Dose: 5 mg Pharmacy Consult (Zosyn Per Pharmacy*) 1 note FOLLOW UP .ZOSYN PER PHARMACY [facility] Solifenacin (Vesicare(Nf)) 5 mg PO DAILY [facility] Last Admin: 02/09/19 08:43 Dose: 5 mg Vital Signs: Vital Signs: Temp Pulse Resp BP Pulse Ox 97.7 F 62 18 125/54 96 02/09/19 16:03 02/09/19 15:58 02/09/19 20:26 02/09/19 15:58 02/09/19 15:58 Patient Weight: Weight 79.8 kg Intake and Output: Intake & Output 02/07/19 02/08/19 02/09/19 02/10/19 06:59 06:59 06:59 06:59 Intake Total 3709 748 728 0 Output Total 425 100 0 1 Balance 3284 648 728 -1 Intake: IV Fluids 3209 487 518 ABX - ZOSYN 422 NS (0.9%) 3209 487 96 IVPB 211 ABX - ZOSYN 211 Oral 500 50 210 0 Output: Urine 0 0 1 [place] 425 100 Other: Estimated Void Large Large Large # Bowel Movements 0 0 # Voids 2 2 1 ADLs: Meal Record Start: 02/03/19 04: 04 Freq: Status: Active Protocol: Created 02/03/19 04:04 System (Rec: 02/03/19 04:04 System [id number]) Document 02/03/19 10:06 [id number] (Rec: 02/03/19 10:06 [id number] SSU-C01) Document 02/04/19 10:52 [id number] (Rec: 02/04/19 10:52 [id number] [facility]-C01) Document 02/06/19 10:09 [id number] (Rec: 02/06/19 10:10 [id number] [facility]-C06) Document 02/08/19 20:26 [id number] (Rec: 02/08/19 20:27 [id number] SSU-M16) Document 02/09/19 13:41 [id number] (Rec: 02/09/19 13:41 [id number] [facility]-C03) Intake and Output Start: 02/03/19 00: 24 Freq: Status: Active Protocol: Created 02/03/19 00:24 System (Rec: 02/03/19 00:24 System [id number]) Intake and Output Start: 02/03/19 04: 04 Freq: DAILY@0600,1400,2200 Status: Active Protocol: Created 02/03/19 04:04 System (Rec: 02/03/19 04:04 System [id number]) Document 02/03/19 06:00 [id number] (Rec: 02/03/19 06:35 [id number] S[facility]-M15) Document 02/03/19 13:26 [id number] (Rec: 02/03/19 13:26 [id number] S[facility]-C01) Document 02/03/19 14:59 [id number] (Rec: 02/03/19 14:59 [id number] SSU-C01) Document 02/03/19 22:10 [id number] (Rec: 02/03/19 22:11 [id number] S[facility]-M17) Document 02/04/19 05:13 [id number] (Rec: 02/04/19 05:13 [id number] S[facility]-L02) Document 02/04/19 14:09 [id number] (Rec: 02/04/19 14:09 [id number] SSU-C01) Document 02/04/19 19:02 [id number] (Rec: 02/04/19 19:02 [id number] S[facility]-M06) Document 02/04/19 22:00 [id number] (Rec: 02/04/19 22:42 [id number] SSU-C05) Document 02/05/19 05:45 [id number] (Rec: 02/05/19 05:45 [id number] S[facility]-L02) Document 02/05/19 14:05 [id number] (Rec: 02/05/19 14:26 [id number] SSU-C02) Document 02/05/19 22:19 [id number] (Rec: 02/05/19 22:19 [id number] S[facility]-M18) Document 02/05/19 22:31 [id number] (Rec: 02/05/19 22:31 [id number] [facility]-M18) Document 02/06/19 05:49 [id number] (Rec: 02/06/19 05:49 [id number] [facility]-M17) Document 02/06/19 14:07 [id number] (Rec: 02/06/19 14:07 [id number] S[facility]-C06) Document 02/06/19 22:00 [id number] (Rec: 02/06/19 22:51 [id number] S[facility]-C05) Document 02/06/19 22:36 [id number] (Rec: 02/06/19 23:09 [id number] [facility]-C05) Document 02/07/19 05:33 [id number] (Rec: 02/07/19 05:33 [id number] [facility]-M16) Document 02/07/19 10:00 [id number] (Rec: 02/07/19 10:01 [id number] [facility]-M07) Document 02/07/19 14:14 [id number] (Rec: 02/07/19 14:14 [id number] SSU-C03) Document 02/07/19 22:26 [id number] (Rec: 02/07/19 22:26 [id number] S[facility]-C02) Document 02/08/19 05:39 [id number] (Rec: 02/08/19 05:40 [id number] [facility]-M17) Document 02/08/19 14:06 [id number] (Rec: 02/08/19 14:07 [id number] [facility]-C02) Document 02/08/19 19:04 [id number] (Rec: 02/08/19 19:04 [id number] [facility]-C11) Document 02/08/19 22:00 [id number] (Rec: 02/08/19 22:28 [id number] [facility]-M16) Document 02/09/19 01:31 [id number] (Rec: 02/09/19 01:31 [id number] [facility]-C19) Document 02/09/19 05:56 [id number] (Rec: 02/09/19 05:57 [id number] [facility]-C19) Document 02/09/19 13:40 [id number] (Rec: 02/09/19 13:40 [id number] [facility]-C03) Document 02/09/19 15:50 [id number] (Rec: 02/09/19 15:52 [id number] [facility]-M18) Eyes: No Scleral Icterus Ears/Nose/Mouth/Throat: Mucous Membranes Moist Neck: Trachea Midline Cardiovascular: NL Sounds; No Murmurs; No JVD, RRR, - - B/l LE edema 2+ Respiratory: Symmetrical Chest Expansion and Respiratory Effort, Clear to Auscultation Abdominal: NL Sounds; No Tenderness; No Distention, No Hepatosplenomegaly Extremities: No Clubbing, Cyanosis - Assessment Assessment: 88 yo male with moderate dementia s/p L hip fracture repaired now with pneumonia and somnolence - Plan Consult Plan (MU): Palliative Plan: Spoke with daughter and friend at pt's bedside. Pt was ambulatory with a walker prior to fall and after surgery pt was to go rehab and then to [facility]. When pt became somnolent due to possible stroke daughter did not want further work up and agreed to comfort care. Stating that her father had been very clear about not wanting to be a "vegetable". Pt is able to drink some liquids eat some ice cream and take pills with applesauce and is receiving IV antibiotics. Daughter wanted information on the hospice residence center. She is familiar with hospice because her mother was on hospice prior to her . Hospice options were discussed and a brochure was given. Hospice services can be administered at the residence, in a pt's home or in SNF. Daughter wanted to wait another day to see if he improved before sending a hospice referral. She is prepared for her dad to but now she is confused if he is going to because he is slightly improved from the weekend. At this time pt may not be hospice eligible but will be if he is unable to eat/drink. Will still send referral to hospice if daughter requests it. KPS 50%. PPS 40% - Time On Unit Date of Evaluation: 02/09/19 Hospice Consult Time in: 11:30 Hospice Consult Time Out: 13:00 Hospice Consult Time Total: 90 > 50% of Time Spend In Counseling or Coordinating Care: Yes
[2019-02-10] MEDS: Piperacillin/Tazobac ADVAN(*) 3.375 GM in NS 0.9% 100 ML* 100 ML IVPB SCH ×3 (04:27→20:51)
[2019-02-10] MEDS: Acetaminophen TAB* 325 MG PO SCH ×4 (04:28→22:18)
[2019-02-10] MEDS: Docusate LIQ* 100 MG/10 ML UDC PO SCH (09:44)
[2019-02-10] MEDS: CMCS: Solifenacin(NF) 5 MG TAB PO SCH (09:44)
--- NOTE | 2019-02-10 10:48 | PN ---
Subjective Date of Service: 02/10/19 Interval History: VS: WNL Pt wakes, responds to questions, and states that he is comfortable. He eats small bites of soft foods, such as applesauce, ice cream, but in very little quantity. Daughter is at bedside. We continued to discuss comfort care, and she is still interested in pursuing this. She requests to continue IV antibiotics for CAP. Hospice referral sent. Family History: Unchanged from Admission Social History: Unchanged from Admission Past Medical History: Unchanged from Admission Objective Active Medications: Acetaminophen (Tylenol Tab*) 650 mg PO Q6H [facility] Docusate Sodium (Colace Liq*) 100 mg PO 0900 [facility] Piperacillin Sod/Tazobactam (Sod 3.375 gm/ Sodium Chloride) 100 mls @ 25 mls/ hr IVPB 0430,1230,2030 [facility] Magnesium Hydroxide (Milk Of Magnesia Liq*) 30 ml PO BID PRN Metoclopramide HCl (Reglan Iv*) 5 mg IV Q6H PRN Pharmacy Consult (Zosyn Per Pharmacy*) 1 note FOLLOW UP .ZOSYN PER PHARMACY [facility] Solifenacin (Vesicare(Nf)) 5 mg PO DAILY [facility] Vital Signs: Temp Pulse Resp BP Pulse Ox 97.5 F 63 20 141/70 95 02/10/19 07:27 02/10/19 07:27 02/10/19 07:50 02/10/19 07:27 02/10/19 07:50 Oxygen Devices in Use Now: None Appearance: Pt is laying in bed sleeping. He wakes easily. He responds to questions most of the time. He fidgets with his blankets and hands at times. He appears comfortable. Eyes: No Scleral Icterus, PERRLA Ears/Nose/Mouth/Throat: Clear Oropharnyx, - - Dry mucous membranes. Poor dentition Neck: NL Appearance and Movements; NL JVP, Trachea Midline Respiratory: Symmetrical Chest Expansion and Respiratory Effort, Clear to Auscultation Cardiovascular: NL Sounds; No Murmurs; No JVD, RRR, No Edema Abdominal: NL Sounds; No Tenderness; No Distention, No Hepatosplenomegaly Extremities: No Clubbing, Cyanosis, - - LUE edema 1+; B/l LE edema 1-2+; all nontender. L hip surgical dressing CDI. Neurological: - - Asleep, wakes easily. Oriented to self only. Result Diagrams: 02/08/19 05:03 02/08/19 05:03 Microbiology and Other Data: Microbiology 02/04/19 21:15 Aerobic Blood Culture - Preliminary Blood Venous No Growth Day 2 Anaerobic Blood Culture - Preliminary No Growth Day 2 02/05/19 02:25 Legionella Urinary Antigen - Final Urine Negative Legionella Antigen Streptococcus pneumoniae Ag Screen - Final Negative S. pneumo Antigen 02/03/19 08:25 Nasal Screen MRSA (PCR) - Final Nasal Mrsa Not Detected Assess/Plan/Problems-Billing Assessment: Mr. Ellsworth is an 88 yo M with PMH of afib, TIA, third degree heart block s/p pacer, HTN, HLD, dementia, and BPH; who presented to the ED after a fall with subsequent left hip pain and was found to have a left hip fracture, now with AMS changes since 02/07. - Patient Problems (1) Change in mental status Comment: - Patient became lethargic on 02/07 - unclear etiology. He had 1 percocet 02/07 at 4 am otherwise no opioids. 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 Possible left sided facial droop. Long conversation with daughter who wants him to be comfort care and refuses any imaging, or testing such as an ABG. It is unclear at this point if the patient will improve and the plan will be to wait and watch while providing comfort measures. Holding xarelto. We decided to continue the antibiotics for pneumonia. Dr. Owens has been updated (2) Closed left hip fracture Comment: - POD #5 s/p left hip hemiarthroplasty by Dr. Owens - Secondary to fall, likely mechanical but unclear due to dementia - Xray showed displaced left femoral neck fracture - HH stable - Management per Ortho - Continue morphine, Percocet, Tylenol - PT/OT on hold for now, per daughter (3) Pneumonia Comment: - Episode of vomiting and coughing prompting concern for aspiration 02/05 - CXR showing right basilar opacity - No longer requiring O2 - Speech therapy eval - thin liquids ok, mechanical ground texture - Continue Zosyn (4) Sepsis Comment: - Source suspected is pneumonia - was resolved - however now with AMS screens positive for sepsis. Again per HCP (daughter) she does not want agressive tx but agrees to continuing abx. This should be re-evaluated if patient continues to decline. - Blood cultures NTD (5) DVT prophylaxis Comment: - Hold Xarelto (6) DNR (do not resuscitate) Comment: - DNR/DNI - comfort care - [facility] has been updated. Daughter does not want any invasive measures. Status and Disposition: Inpatient. Discharge plan is unclear; saturday patient became more unresponsive ; Long discussion with daughter who wants him to be comfort care. Hospice consulted.
[2019-02-11] MEDS: Acetaminophen TAB* 325 MG PO SCH ×4 (04:06→23:14)
[2019-02-11] MEDS: Piperacillin/Tazobac ADVAN(*) 3.375 GM in NS 0.9% 100 ML* 100 ML IVPB SCH ×3 (04:07→20:00)
[2019-02-11] MEDS: CMCS: Solifenacin(NF) 5 MG TAB PO SCH (10:05)
[2019-02-11] MEDS: Docusate LIQ* 100 MG/10 ML UDC PO SCH (10:05)
--- NOTE | 2019-02-11 17:38 | PN ---
Subjective Date of Service: 02/11/19 Interval History: VS: HTN When asked how he is, Mr. Ellsworth says "I'm fine;" he has no complaints today. He responds to questioning and is talkative. He has been up to chair with assistance. Daughter continues to request placement, but is considering PT. She would like to d/c comfort care and resume home medications. Family History: Unchanged from Admission Social History: Unchanged from Admission Past Medical History: Unchanged from Admission Objective Active Medications: Acetaminophen (Tylenol Tab*) 650 mg PO Q6H [facility] Aspirin (Aspirin 81 Mg Chew Tab*) 81 mg PO DAILY [facility] Docusate Sodium (Colace Liq*) 100 mg PO 0900 [facility] Furosemide (Lasix Tab*) 20 mg PO EVERY OTHER DAY [facility] Piperacillin Sod/Tazobactam (Sod 3.375 gm/ Sodium Chloride) 100 mls @ 25 mls/ hr IVPB 0430,1230,2030 [facility] Magnesium Hydroxide (Milk Of Magnesia Liq*) 30 ml PO BID PRN Metoclopramide HCl (Reglan Iv*) 5 mg IV Q6H PRN Pharmacy Consult (Zosyn Per Pharmacy*) 1 note FOLLOW UP .ZOSYN PER PHARMACY [facility] Solifenacin (Vesicare(Nf)) 5 mg PO DAILY [facility] Vital Signs: Temp Pulse Resp BP Pulse Ox 98.3 F 62 18 141/59 93 02/11/19 15:39 02/11/19 15:39 02/11/19 15:39 02/11/19 15:39 02/11/19 16:00 Oxygen Devices in Use Now: None Appearance: Pt is sitting up in chair with LE at ground. He is smiling and talking. He appears well. Eyes: No Scleral Icterus, PERRLA Ears/Nose/Mouth/Throat: Clear Oropharnyx, Mucous Membranes Moist, - - Poor dentition Neck: NL Appearance and Movements; NL JVP, Trachea Midline Respiratory: Symmetrical Chest Expansion and Respiratory Effort, Clear to Auscultation Cardiovascular: NL Sounds; No Murmurs; No JVD, RRR Abdominal: NL Sounds; No Tenderness; No Distention, No Hepatosplenomegaly Extremities: No Clubbing, Cyanosis, - - B/l LE edema 1-2+ Neurological: - - Alert. Oriented to self. Result Diagrams: 02/08/19 05:03 02/08/19 05:03 Microbiology and Other Data: Microbiology 02/04/19 21:15 Aerobic Blood Culture - Preliminary Blood Venous No Growth Day 2 Anaerobic Blood Culture - Preliminary No Growth Day 2 02/05/19 02:25 Legionella Urinary Antigen - Final Urine Negative Legionella Antigen Streptococcus pneumoniae Ag Screen - Final Negative S. pneumo Antigen 02/03/19 08:25 Nasal Screen MRSA (PCR) - Final Nasal Mrsa Not Detected Assess/Plan/Problems-Billing Assessment: Mr. Ellsworth is an 88 yo M with PMH of afib, TIA, third degree heart block s/p pacer, HTN, HLD, dementia, and BPH; who presented to the ED after a fall with subsequent left hip pain and was found to have a left hip fracture, now with AMS changes since 02/07. - Patient Problems (1) Change in mental status Comment: -Patient became lethargic on 02/07 - unclear etiology -Pt appears to be moving closer to baseline daily. Today, pt daughter has opted for removal of comfort care measures (2) Closed left hip fracture Comment: - POD #6 s/p left hip hemiarthroplasty by Dr. Owens - Secondary to fall, likely mechanical but unclear due to dementia - Xray showed displaced left femoral neck fracture - HH stable - Management per Ortho - Continue morphine, Percocet, Tylenol - PT/OT ordered (3) Pneumonia Comment: - Episode of vomiting and coughing prompting concern for aspiration 02/05 - CXR showing right basilar opacity - No longer requiring O2 - Speech therapy eval - thin liquids ok, mechanical ground texture - Continue Zosyn- will discontine tonight (4) Edema Comment: -D/c comfort care -IV d/c tonight, so will give PO lasix 60 in a.m. (5) HTN (hypertension) Comment: -Slight elevation today -Comfort care removed today -Restart Furosemid tomorrow; will start at 40, due to edema (6) PAF (paroxysmal atrial fibrillation) Comment: -Continue Xarelto (7) History of TIA (transient ischemic attack) Comment: -Continue lipitor, asa (8) DVT prophylaxis Comment: - Restart xarelto (9) DNR (do not resuscitate) Comment: - DNR/DNI - comfort care - [facility] has been updated. Daughter does not want any invasive measures. Status and Disposition: Inpatient. Discharge plan is unclear; saturday patient became more unresponsive ; Long discussion with daughter who wants him to be comfort care. Hospice consulted.
[2019-02-11] MEDS ORDERED: Atorvastatin* 20 MG TAB PO SCH (21:00)
[2019-02-12] MEDS: Piperacillin/Tazobac ADVAN(*) 3.375 GM in NS 0.9% 100 ML* 100 ML IVPB SCH (03:32)
[2019-02-12 05:16] LABS: Hematocrit 31 % (42-52); Hemoglobin 10.2 g/dL (14.0-18.0); Mean Corpuscular HGB Conc 33 g/dL (31-36); Mean Corpuscular Hemoglobin 33 pg (27-31); Mean Corpuscular Volume 100 fL (80-94); Mean Platelet Volume 7.7 fL (7.4-10.4); Platelet Count 240 10^3/uL (150-450); Red Blood Count 3.11 10^6 /uL (4.18-5.48); Red Cell Distribution Width 14 % (10.5-15); White Blood Count 10.6 10^3/uL (3.5-10.8)
[2019-02-12 05:27] LABS: BUN/Creatinine Ratio 25.7 (8-20); Calcium 8.2 mg/dL (8.6-10.3); EGFR African American 120.8 (>60); EGFR Non-African American 99.8 (>60); Potassium 3.2 mmol/L (3.5-5.0)
[2019-02-12] MEDS ORDERED: Furosemide TAB* 20 MG PO ONE (06:00)
[2019-02-12] MEDS: Acetaminophen TAB* 325 MG PO SCH ×3 (06:14→11:00)
[2019-02-12] MEDS ORDERED: Potassium Chlor TAB* 20 MEQ TAB.ER PO SCH ×2 (09:00→11:00)
[2019-02-12] MEDS: Cyanocobalamin TAB* 500 MCG PO SCH ×2 (10:40→11:02)
[2019-02-12] MEDS: Donepezil TAB* 5 MG PO SCH ×2 (10:40→11:03)
[2019-02-12] MEDS: CMCS: Solifenacin(NF) 5 MG TAB PO SCH (10:40)
[2019-02-12] MEDS: Docusate LIQ* 100 MG/10 ML UDC PO SCH ×2 (10:40→11:03)
[2019-02-12] MEDS: Aspirin 81 mg CHEW TAB* 81 MG TAB.CHEW PO SCH ×2 (10:40→11:02)
[2019-02-12] MEDS: Multivitamins/Minerals TAB PO SCH ×3 (10:41→11:03)
[2019-02-12] MEDS: Potassium Chloride* LIQUID 20 MEQ/15 ML UDC PO SCH ×3 (11:02→14:27)
--- NOTE | 2019-02-12 12:45 | DS ---
CC: Dr. Michael Canada; Dr. Kevin Beavers* DATE OF ADMISSION: 02/03/2019. DATE OF DISCHARGE: 02/12/2019. PRIMARY CARE PHYSICIAN: Dr. Michael Canada. ORTHOPEDIC SURGEON: Dr. Kevin Beavers. ATTENDING PHYSICIAN: Dr. Cherise Rodriguez* (dictated by TANYA Leyva). PRIMARY DIAGNOSES: 1. Left hip hemiarthroplasty. 2. Pneumonia. 3. Altered mental status. SECONDARY DIAGNOSES: 1. Hypertension. 2. Hyperlipidemia. 3. Paroxysmal atrial fibrillation, on anticoagulation. 4. Moderate dementia. 5. BPH. 6. History of TIA. 7. History of third degree heart block, status post permanent pacemaker. STUDIES WHILE IN THE HOSPITAL: 1. Chest x-ray, 02/03/2019: Impression: No active cardiopulmonary disease noted. 2. Hip x-ray, 02/03/2019: Impression: Displaced fracture of the left femoral neck. 3. Transthoracic echocardiogram, 02/03/2019: Left ventricle: Wall thickness mildly increased, systolic function at the lower limits of normal, EF 50 to 55 percent. Right ventricle: Pacer wire noted, systolic pressure mildly increased at 44 mmHg. Mild to moderate tricuspid regurgitation. The study is unchanged since the study of 03/16/2016. 4. Femur x-ray, 02/03/2019: Impression: Again noted is a fracture of the left femoral neck. Osteoarthritis. Peripheral arterial disease. 5. Left knee x-ray, 02/03/2019: Impression: No evidence for fracture. 6. Chest x-ray, 02/04/2019: Impression: Increasing opacity in the right base likely representing atelectasis. 7. Left hip/pelvis x-ray, 02/05/2019: Impression: Status post left hip replacement surgery. 8. Chest x-ray, 02/11/2019: Impression: Small bilateral effusions with bibasilar atelectasis versus consolidation. No radiographic evidence of pulmonary parenchymal tuberculosis. DISCHARGE MEDICATIONS: Home medications: 1. Acetaminophen 325 mg p.o. q.p.m. 2. Aspirin 81 mg p.o. daily. 3. Atorvastatin 20 mg p.o. at bedtime. 4. Cyanocobalamin 1,000 mcg p.o. daily. 5. Docusate sodium 100 mg p.o. daily. 6. Donepezil HCL 10 mg p.o. daily. 7. Furosemide 20 mg p.o. every other day. 8. Loratadine 10 mg p.o. daily. 9. Magnesium Hydroxide 30 ml p.o. b.i.d. prn constipation. 10. Melatonin 5 mg p.o. q.p.m. 11. Menthol 7 mg p.o. q.4 hours prn. 12. Myrbetriq one tab p.o. daily. 13. Multivitamin/minerals one tab p.o. daily. 14. Child multivitamin plus iron one chew tab p.o. daily. 15. Potassium Chloride 20 mEq p.o. daily. 16. Rivaroxaban 20 mg p.o. daily. 17. Vesicare one tab p.o. daily. HISTORY OF PRESENT ILLNESS/HOSPITAL COURSE: Mr. Ellsworth is an 88-year-old male with a past medical history of atrial fibrillation, hypertension, hyperlipidemia, dementia, and a history of TIA who presented from [facility] after an unwitnessed fall. He was unable to provide a history. His daughter is present at the time who states that she was called around midnight, stating that the patient was found on the floor next to his bed. It is unsure whether he fell out of bed or fell from the floor. The patient ambulates with a walker at baseline. In the emergency room, the patient received a full work-up which included labs and imaging. He was found to have a left femoral neck fracture. He was admitted by the Hospitalist Service. He was admitted to Surgical Short Stay and placed on telemetry. Orthopedics was consulted. He was medically optimized for surgery. An echo was ordered and revealed no changes from previous echo in 2016. Xarelto and aspirin were held due to plans for left hip surgery. It was noted that the patient had a bout of emesis on the morning after admission and prior to surgery. He was placed on aspiration precautions. Chest x-ray was obtained and revealed possible right middle lobe or right lower lobe pneumonia. He was started on Zosyn. He was taken to the OR on 02/05/2019 for a left hip hemiarthroplasty. This was performed without complications. The patient was continued on Zosyn throughout his stay and finished a seven day course of antibiotics. Postoperatively, the patient did well, but was noted to experience some altered mental status the following day. He is described as being lethargic, drowsy, confused, difficult to arouse, and somewhat agitated. It was noted that the patient did receive one Percocet for pain. This was discussed with the patient' s daughter. There was concern that the patient may have had a CVA as he does have a left-sided facial droop, but it is noted that the patient has a history of TIA. This appears to be chronic. Discussion was had with the daughter who temporarily opted for comfort care with continuation of antibiotics. She did not want further imaging or further testing such as ABG. His home medications were held for the following couple of days until it was noted that the patient started to progress day by day. He did finish his treatment for pneumonia and appears to have improved. His altered mental status is also improved and his daughter states that she feels that he is closer to baseline. At the time of discharge, the patient is asked if he has any complaints and he states no. He is a bit drowsy today and falls asleep during our conversation, but wakes to spoken questioning. Mr. Ellsworth is stable for discharge. It is noted that the patient has hypokalemia with a potassium of 3.2. This has been repleted prior to discharge. It is recommended that he have a follow-up BMP for this as well. He is also noted to have some postoperative anemia which is trending upward. PHYSICAL EXAMINATION: General: Mr. Ellsworth is a well-developed, well- nourished, elderly, white male who is sitting up in bed, sleeping comfortably. He wakes easily, but drifts off to sleep during our conversation. Vital Signs: Temperature 98.6 temporal, heart rate 84, respiratory rate 16, oxygen saturation 95 percent on room air, blood pressure 141/69. HEENT: Pupils are equally round and reactive to light. Extraocular movements are intact. The patient is noted to have a left facial droop. Hearing is grossly intact. Oral mucus membranes are moist. There are no lesions. The patient has poor dentition. Tongue at midline. Cardiovascular: Regular rate and rhythm with S1 , S2 present without murmurs, rubs, or gallops. There is no JVD. Respiratory: Symmetrical chest expansion without use of accessory muscles. The lungs are clear to auscultation bilaterally. There are no rhonchi, wheezes, or rubs. Abdomen: Bowel sounds in all quadrants. The abdomen is somewhat protuberant without distention. The abdomen is soft and nontender to palpation. Extremities: Skin is warm and smooth bilaterally. There is no clubbing or cyanosis. The patient has lower extremity edema bilaterally that is approximately 2+ pitting. Radial and pedal pulses are palpable. The left hip has an incision that has no drainage or erythema or warmth. It is tender to palpation. It is covered with a clean, dry, and intact dressing. The patient is able to move the left hip, although it is painful. Neuro: The patient is asleep, but wakes easily. He is oriented to self. He is able to move all of his extremities. DISCHARGE PLAN: Mr. Ellsworth will be discharged to [facility]. Medications as above. ACTIVITY: Weightbearing as tolerated with walker. DIET: Regular, mechanical ground, thin liquids okay. EDUCATION: 1. Follow-up with primary care provider in four to seven days. 2. Follow-up with Dr. Beavers on 03/27/2019 at 10:30 a.m. 3. Follow-up with Dr. Sorenson as scheduled. 4. Staple removal due on 02/18 to 02/19/2019. 5. Recheck BMP in approximately five days. 6. Return to the ER or the nearest hospital if you experience any worsening of symptoms, shortness of breath, chest discomfort, high fever, chills, night sweats, cough, lightheadedness, dizziness, loss of consciousness, pain, erythema , warmth or drainage at the surgical incision site, or any other worrisome signs or symptoms. This is a summarized report of a complex medical history and hospital stay. For further details, please see the entire medical record. TIME SPENT: Approximately 30 minutes were spent on this discharge, greater than half of that time was spent [id number] with the patient discussing discharge plans and instructions. TANYA FIGUEROA [id number]/[facility] #: [id number] MTDChano
[2019-02-12 13:51] VITALS: BP 154/84
[2019-02-12] MEDS ORDERED: Rivaroxaban TAB(*) 20 MG TAB PO SCH (17:00)
[2019-02-13] MEDS ORDERED: Furosemide TAB* 20 MG PO SCH (09:00)
== END 2019-02-12 14:57 | DRG 469 ==
LOC: ED → SSU 03:23
PROVIDERS: ADMIT Pediatrics; ATTEND Internal Medicine
PROC: 0SRS0JZ Replacement of Left Hip Joint, Femoral Surface with Synthetic Substitute, Open Approach (ICD-10-PCS; principal; 2019-02-05 15:00)
DX: S72.012A Unspecified intracapsular fracture of left femur, initial encounter for closed fracture (principal); A41.9 Sepsis, unspecified organism; J69.0 Pneumonitis due to inhalation of food and vomit; J98.11 Atelectasis; Z66 Do not resuscitate; I10 Essential (primary) hypertension; E78.5 Hyperlipidemia, unspecified; D64.9 Anemia, unspecified; I48.0 Paroxysmal atrial fibrillation; N40.0 Benign prostatic hyperplasia without lower urinary tract symptoms; M16.12 Unilateral primary osteoarthritis, left hip; I73.9 Peripheral vascular disease, unspecified; R29.810 Facial weakness; I07.1 Rheumatic tricuspid insufficiency; R60.0 Localized edema; E87.6 Hypokalemia; W06.XXXA Fall from bed, initial encounter; F03.90 Unspecified dementia, unspecified severity, without behavioral disturbance, psychotic disturbance, mood disturbance, and anxiety; Z86.73 Personal history of transient ischemic attack (TIA), and cerebral infarction without residual deficits; Z79.01 Long term (current) use of anticoagulants; Z79.82 Long term (current) use of aspirin; Z95.810 Presence of automatic (implantable) cardiac defibrillator; Z87.01 Personal history of pneumonia (recurrent); Z85.828 Personal history of other malignant neoplasm of skin; Y92.122 Bedroom in nursing home as the place of occurrence of the external cause; Z97.4 Presence of external hearing-aid
CPT/HCPCS: 36415; 71045; 80048; 80053; 81003; 81015; 83735; 84484; 85025; 85027; 85060; 85610; 85730; 86850; 86900; 86901; 86922; 87040; 87641; 87899; 88305; 88311; 93005; 93306; 99281; A9270-GY; C1776; G8978-GP-CL; G8979-GP-CI; G8979-GP-CJ; J0780; J1644; J1940; J2270; J2405; J2543; J2704; J2710; J2765; J3010; J3475